=== PATIENT | female | born 1970 | race Hispanic/Latino ===

== ENCOUNTER 2018-09-14 17:33 | Emergency (ER) | payer MEDICAID ==
[~2018-09-14 17:33] MED LIST: ALPR1TAB2 PO; AMIT25TA9 PO; DIVA-78 PO; FIORC PO; HYDR-3421 PO; INSU10VI3 SQ; METF-445 PO; OXYC-165 PO; PROM25 PO
[2018-09-14] MEDS ORDERED: ONDANSETRON HCL 4 MG/2 ML VIAL ONE ×2 (18:12→19:54)
[2018-09-14] MEDS ORDERED: FAMOTIDINE/PF 20 MG/2 ML VIAL IV ONE (18:13)
[2018-09-14 18:15] LABS: BASOPHILS % (AUTO) 0.4 % (0.0-5.0); EOSINOPHILS % (AUTO) 1.6 % (0.0-8.0); HEMATOCRIT 41.3 % (36-48); MEAN CORPUSCULAR HEMOGLOBIN 28.8 pg (27.0-33.0); MEAN CORPUSCULAR VOLUME 84.6 fL (79-99); MONOCYTES % (AUTO) 6.9 % (3.0-13.0); NEUTROPHILS % (AUTO) 74.1 % (40.0-77.0); PLATELET COUNT (AUTO) 299 K/uL (130-400); RED BLOOD CELL COUNT(AUTO) 4.88 MIL/uL (4.00-5.50); RED CELL DISTRIBUTION WIDTH 12.9 % (11.0-15.5); WHITE BLOOD COUNT (AUTO) 12.7 K/uL (4.8-10.8)
[2018-09-14] MEDS ORDERED: SODIUM CHLORIDE 0.9% 1000ML 1,000 ML IV ONE (18:17)
[2018-09-14 18:27] LABS: CREATININE 0.8 mg/dL (0.5-1.5); POTASSIUM 3.8 mmol/L (3.5-5.1)
[2018-09-14 18:28] LABS: AMYLASE 38 U/L (25-115); LIPASE 157 U/L (114-286)
[2018-09-14 18:32] LABS: ALBUMIN 3.8 g/dL (3.5-5.0); BILIRUBIN,TOTAL 0.6 mg/dL (0.2-1.0); TOTAL PROTEIN, SERUM 7.8 g/dL (6.0-8.3)
[2018-09-14] MEDS ORDERED: LEVOFLOXACIN 500 MG TABLET ONE (19:53)
== END 2018-09-14 20:58 | disposition home or self-care (01) ==
LOC: EDH 17:33
DX: A09 Infectious gastroenteritis and colitis, unspecified (principal); R11.2 Nausea with vomiting, unspecified; E11.9 Type 2 diabetes mellitus without complications; J45.909 Unspecified asthma, uncomplicated; F41.9 Anxiety disorder, unspecified; Z79.4 Long term (current) use of insulin; Z88.5 Allergy status to narcotic agent; Z88.2 Allergy status to sulfonamides
CPT/HCPCS: 36415; 80053; 82150; 83690; 85025; 96361; 96374; 96375; 96376; 99283; J2405 ×2; J3490; J7030

== ENCOUNTER 2018-10-15 20:21 | Emergency (ER) | payer MEDICAID ==
[2018-10-15 20:49] LABS: BASOPHILS % (AUTO) 0.4 % (0.0-5.0); EOSINOPHILS % (AUTO) 2.2 % (0.0-8.0); HEMATOCRIT 38.9 % (36-48); LYMPHOCYTES % (AUTO) 23.4 % (21.0-51.0); MEAN CORPUSCULAR HEMOGLOBIN 29.1 pg (27.0-33.0); MEAN CORPUSCULAR HGB CONC 34.4 g/dL (32.0-36.0); MEAN CORPUSCULAR VOLUME 84.5 fL (79-99); MONOCYTES % (AUTO) 7.3 % (3.0-13.0); NEUTROPHILS % (AUTO) 66.7 % (40.0-77.0); PLATELET COUNT (AUTO) 277 K/uL (130-400); RED BLOOD CELL COUNT(AUTO) 4.61 MIL/uL (4.00-5.50); RED CELL DISTRIBUTION WIDTH 12.6 % (11.0-15.5); WHITE BLOOD COUNT (AUTO) 12.9 K/uL (4.8-10.8)
[2018-10-15 20:59] LABS: APPEARANCE,URINE SL CLOUDY (CLEAR); BILIRUBIN,URINE NEGATIVE (NEGATIVE); COLOR,URINE YELLOW (YELLOW); GLUCOSE, URINE (UA) >=1000 mg/dL (NEGATIVE); KETONES,URINE 5 mg/dL (NEGATIVE); LEUKOCYTE ESTERASE ,URINE TRACE (NEGATIVE); NITRATE,URINE POSITIVE (NEGATIVE); OCCULT BLOOD,URINE NEGATIVE (NEGATIVE); PH,URINE 6.5 (5.0-8.0); PROTEIN,URINE NEGATIVE (NEGATIVE); UROBILINOGEN,URINE 0.2 mg/dL (0.2-1.0)
[2018-10-15 21:02] LABS: INR 0.93 (0.85-1.15); PROTHROMBIN TIME 9.8 SEC (9.6-11.6)
[2018-10-15 21:06] LABS: AMPHET/METH SCREEN,URINE NEGATIVE (NEGATIVE); BARBITURATE SCREEN, URINE NEGATIVE (NEGATIVE); BENZODIAZEPINES SCREEN,URINE NEGATIVE (NEGATIVE); CANNABINOID SCREEN,URINE NEGATIVE (NEGATIVE); COCAINE SCREEN,URINE POSITIVE (NEGATIVE); OPIATE SCREEN,URINE NEGATIVE (NEGATIVE); PHENCYCLIDINE SCREEN,URINE NEGATIVE (NEGATIVE)
[2018-10-15 21:07] LABS: HCG,QUAL RESULT NEGATIVE (NEGATIVE)
[2018-10-15 21:10] LABS: CREATININE 0.8 mg/dL (0.5-1.5); POTASSIUM 4.2 mmol/L (3.5-5.1)
[2018-10-15 21:15] LABS: ALBUMIN 3.7 g/dL (3.5-5.0); BILIRUBIN,TOTAL 0.2 mg/dL (0.2-1.0)
[2018-10-15 21:31] LABS: BACTERIA,URINE Few /HPF (None Seen); MUCUS,URINE Few LPF (None Seen); RBC,URINE 0-1 /HPF (0-1); SQUAMOUS EPITHELIAL CELL,UR Moderate /HPF (0-2)
[2018-10-15] MEDS ORDERED: ACETAMINOPHEN EXTRA STRENGTH 500 MG TABLET ONE (22:07)
[2018-10-15] MEDS ORDERED: ONDANSETRON HCL 4 MG/2 ML VIAL ONE (22:26)
== END 2018-10-15 22:49 | disposition home or self-care (01) ==
LOC: EDH 20:21 → EEVIPCON 20:21 → EDH 22:49
DX: S09.90XA Unspecified injury of head, initial encounter (principal); F41.9 Anxiety disorder, unspecified; E11.9 Type 2 diabetes mellitus without complications; G43.909 Migraine, unspecified, not intractable, without status migrainosus; J45.909 Unspecified asthma, uncomplicated; F14.10 Cocaine abuse, uncomplicated; Z88.1 Allergy status to other antibiotic agents; Z88.6 Allergy status to analgesic agent; Z90.49 Acquired absence of other specified parts of digestive tract; Y04.2XXA Assault by strike against or bumped into by another person, initial encounter; Y93.89 Activity, other specified; Y92.89 Other specified places as the place of occurrence of the external cause; Y99.8 Other external cause status
CPT/HCPCS: 36415; 70450; 80053; 80305; 81001; 81025; 82550; 84484; 85025; 85610; 85730; 93005; 96374; 99285; J2405

== ENCOUNTER 2019-08-23 00:54 | Emergency (ER) | payer MEDICAID ==
[2019-08-23] MEDS ORDERED: DEXAMETHASONE SOD PHOSPHATE 10MG/ML 1ML VIAL ONE (01:39)
[2019-08-23] MEDS ORDERED: DiphenhydrAMINE HCL 50 MG/ML VIAL ONE (01:40)
[2019-08-23] MEDS ORDERED: PROCHLORPERAZINE EDISYLATE 10 MG/2 ML VIAL ONE (01:40)
[2019-08-23] MEDS ORDERED: KETOROLAC TROMETHAMINE 30MG/ML ONE (01:40)
[2019-08-23] MEDS ORDERED: SODIUM CHLORIDE 0.9% 1000ML 1,000 ML IV ONE (01:41)
[2019-08-23 02:14] LABS: BASOPHILS % (AUTO) 0.4 % (0.0-5.0); EOSINOPHILS % (AUTO) 3.7 % (0.0-8.0); HEMATOCRIT 40.1 % (36-48); LYMPHOCYTES % (AUTO) 23.9 % (21.0-51.0); MEAN CORPUSCULAR HEMOGLOBIN 28.3 pg (27.0-33.0); MEAN CORPUSCULAR HGB CONC 33.9 g/dL (32.0-36.0); MEAN CORPUSCULAR VOLUME 83.4 fL (79-99); MONOCYTES % (AUTO) 10.2 % (3.0-13.0); NEUTROPHILS % (AUTO) 61.1 % (40.0-77.0); PLATELET COUNT (AUTO) 308 K/uL (130-400); RED BLOOD CELL COUNT(AUTO) 4.81 MIL/uL (4.00-5.50); RED CELL DISTRIBUTION WIDTH 12.5 % (11.0-15.5); WHITE BLOOD COUNT (AUTO) 16.4 K/uL (4.8-10.8)
[2019-08-23 02:25] LABS: CREATININE 0.8 mg/dL (0.5-1.5); POTASSIUM 3.9 mmol/L (3.5-5.1)
== END 2019-08-23 04:03 | disposition home or self-care (01) ==
LOC: EDH 00:54
DX: G43.009 Migraine without aura, not intractable, without status migrainosus (principal); J01.90 Acute sinusitis, unspecified; R11.2 Nausea with vomiting, unspecified; J45.909 Unspecified asthma, uncomplicated; E11.9 Type 2 diabetes mellitus without complications; F41.9 Anxiety disorder, unspecified; F14.10 Cocaine abuse, uncomplicated; Z88.1 Allergy status to other antibiotic agents; Z88.6 Allergy status to analgesic agent; Z90.710 Acquired absence of both cervix and uterus; Z98.890 Other specified postprocedural states
CPT/HCPCS: 36415; 70450; 80048; 85025; 96361; 96372; 96374; 96375; 99285; J0780; J1100; J1200; J1885; J7030

== ENCOUNTER 2019-09-03 00:25 | Emergency (ER) | payer MEDICAID ==
[2019-09-03] MEDS ORDERED: ACETAMINOPHEN EXTRA STRENGTH 500 MG TABLET ONE (00:44)
[2019-09-03] MEDS ORDERED: ONDANSETRON ODT 4 MG TAB ONE (00:45)
[2019-09-03 01:03] LABS: RAPID GROUP A STREP NEGATIVE (NEGATIVE)
[2019-09-03] MEDS ORDERED: SODIUM CHLORIDE 0.9% 1000ML 1,000 ML IV ONE ×2 (01:42→02:35)
[2019-09-03] MEDS ORDERED: FAMOTIDINE/PF 20 MG/2 ML VIAL IV ONE (01:44)
[2019-09-03] MEDS ORDERED: HYOSCYAMINE SULFATE 0.125 MG TAB.SUBL SL ONE (01:44)
[2019-09-03 01:48] LABS: BASOPHILS % (AUTO) 0.2 % (0.0-5.0); EOSINOPHILS % (AUTO) 1.6 % (0.0-8.0); HEMATOCRIT 41.3 % (36-48); LYMPHOCYTES % (AUTO) 3.5 % (21.0-51.0); MEAN CORPUSCULAR HEMOGLOBIN 28.3 pg (27.0-33.0); MEAN CORPUSCULAR HGB CONC 34.1 g/dL (32.0-36.0); MEAN CORPUSCULAR VOLUME 82.9 fL (79-99); MONOCYTES % (AUTO) 5.3 % (3.0-13.0); NEUTROPHILS % (AUTO) 88.8 % (40.0-77.0); PLATELET COUNT (AUTO) 310 K/uL (130-400); RED BLOOD CELL COUNT(AUTO) 4.98 MIL/uL (4.00-5.50); RED CELL DISTRIBUTION WIDTH 12.5 % (11.0-15.5)
[2019-09-03 02:02] LABS: ALBUMIN 3.5 g/dL (3.5-5.0); BILIRUBIN,TOTAL 0.5 mg/dL (0.2-1.0); POTASSIUM 4.6 mmol/L (3.5-5.1); TOTAL PROTEIN, SERUM 7.6 g/dL (6.0-8.3)
[2019-09-03] MEDS ORDERED: INSULIN HUMULIN R 100 UNIT/ML 3ML ONE (02:35)
[2019-09-03] MEDS ORDERED: ONDANSETRON HCL 4 MG/2 ML VIAL ONE (04:21)
[2019-09-03] MEDS ORDERED: LEVOFLOXACIN 500 MG TABLET ONE (04:21)
[2019-09-03] MEDS ORDERED: SODIUM CHLORIDE 0.9% 500ML 500 ML IV ONE (04:21)
[2019-09-03] MEDS ORDERED: SUCRALFATE 1 GM TABLET ONE (05:23)
== END 2019-09-03 05:42 | disposition home or self-care (01) ==
LOC: EDH 00:25
DX: A09 Infectious gastroenteritis and colitis, unspecified (principal); E11.65 Type 2 diabetes mellitus with hyperglycemia; E86.0 Dehydration; F41.9 Anxiety disorder, unspecified; J45.909 Unspecified asthma, uncomplicated; G43.909 Migraine, unspecified, not intractable, without status migrainosus; Z90.49 Acquired absence of other specified parts of digestive tract; Z88.1 Allergy status to other antibiotic agents
CPT/HCPCS: 36415; 80053; 82948; 83690; 85025; 87804 ×2; 87880; 96361; 96374; 96375; 99284; J1815; J2405; J3490; J7030 ×2; J7040

== ENCOUNTER 2020-03-19 18:06 | Emergency (ER) | payer MEDICAID ==
[2020-03-19] MEDS ORDERED: SODIUM CHLORIDE 0.9% 1000ML 1,000 ML IV ONE (18:07)
[2020-03-19 18:37] LABS: BASOPHILS % (AUTO) 0.3 % (0.0-5.0); EOSINOPHILS % (AUTO) 0.4 % (0.0-8.0); HEMATOCRIT 43.1 % (36-48); LYMPHOCYTES % (AUTO) 17.1 % (21.0-51.0); MEAN CORPUSCULAR HEMOGLOBIN 27.7 pg (27.0-33.0); MEAN CORPUSCULAR HGB CONC 34.1 g/dL (32.0-36.0); MEAN CORPUSCULAR VOLUME 81.3 fL (79-99); MONOCYTES % (AUTO) 5.3 % (3.0-13.0); NEUTROPHILS % (AUTO) 76.3 % (40.0-77.0); PLATELET COUNT (AUTO) 392 K/uL (130-400); RED CELL DISTRIBUTION WIDTH 13.3 % (11.0-15.5); WHITE BLOOD COUNT (AUTO) 15.4 K/uL (4.8-10.8)
[2020-03-19 19:04] LABS: APPEARANCE,URINE Clear (CLEAR); BILIRUBIN,URINE Negative (NEGATIVE); COLOR,URINE Yellow (YELLOW); GLUCOSE, URINE (UA) >=1000 mg/dL (NEGATIVE); KETONES,URINE Negative (NEGATIVE); LEUKOCYTE ESTERASE ,URINE Negative (NEGATIVE); NITRATE,URINE Negative (NEGATIVE); OCCULT BLOOD,URINE Negative (NEGATIVE); PROTEIN,URINE Negative (NEGATIVE)
[2020-03-19] MEDS ORDERED: DiphenhydrAMINE HCL 50 MG/ML VIAL ONE (19:20)
[2020-03-19] MEDS ORDERED: METOCLOPRAMIDE 10 MG/2 ML VIAL ONE (19:20)
[2020-03-19] MEDS ORDERED: KETOROLAC TROMETHAMINE 30MG/ML ONE (19:21)
[2020-03-19 19:26] LABS: CREATININE 0.8 mg/dL (0.5-1.5); POTASSIUM 3.7 mmol/L (3.5-5.1)
[2020-03-19 19:33] LABS: BACTERIA,URINE Few /HPF (None Seen); RBC,URINE None Seen /HPF (0-1); SQUAMOUS EPITHELIAL CELL,UR 0-2 /HPF (0-2)
[2020-03-19 19:42] LABS: AMPHET/METH SCREEN,URINE NEGATIVE (NEGATIVE); BARBITURATE SCREEN, URINE NEGATIVE (NEGATIVE); BENZODIAZEPINES SCREEN,URINE NEGATIVE (NEGATIVE); CANNABINOID SCREEN,URINE NEGATIVE (NEGATIVE); COCAINE SCREEN,URINE POSITIVE (NEGATIVE); OPIATE SCREEN,URINE NEGATIVE (NEGATIVE); PHENCYCLIDINE SCREEN,URINE NEGATIVE (NEGATIVE)
== END 2020-03-19 21:09 | disposition home or self-care (01) ==
LOC: EDH 18:06
DX: G43.109 Migraine with aura, not intractable, without status migrainosus (principal); E11.65 Type 2 diabetes mellitus with hyperglycemia; I10 Essential (primary) hypertension; F14.10 Cocaine abuse, uncomplicated; J45.909 Unspecified asthma, uncomplicated; F41.9 Anxiety disorder, unspecified; Z90.49 Acquired absence of other specified parts of digestive tract; Z88.6 Allergy status to analgesic agent; Z88.1 Allergy status to other antibiotic agents
CPT/HCPCS: 36415; 80048; 80305; 81001; 85025; 96361; 96374; 96375; 99284; J1200; J1885; J2765; J7030

== ENCOUNTER 2020-04-05 10:50 | Emergency (ER) | payer MEDICAID ==
[2020-04-05 11:19] LABS: BASOPHILS % (AUTO) 0.4 % (0.0-5.0); EOSINOPHILS % (AUTO) 4.5 % (0.0-8.0); HEMATOCRIT 41.5 % (36-48); LYMPHOCYTES % (AUTO) 23.4 % (21.0-51.0); MEAN CORPUSCULAR HEMOGLOBIN 28.5 pg (27.0-33.0); MEAN CORPUSCULAR HGB CONC 34.5 g/dL (32.0-36.0); MEAN CORPUSCULAR VOLUME 82.8 fL (79-99); NEUTROPHILS % (AUTO) 64.5 % (40.0-77.0); PLATELET COUNT (AUTO) 354 K/uL (130-400); RED BLOOD CELL COUNT(AUTO) 5.01 MIL/uL (4.00-5.50); RED CELL DISTRIBUTION WIDTH 13.1 % (11.0-15.5); WHITE BLOOD COUNT (AUTO) 15.6 K/uL (4.8-10.8)
[2020-04-05 11:20] LABS: APPEARANCE,URINE Clear (CLEAR); BILIRUBIN,URINE Negative (NEGATIVE); COLOR,URINE Yellow (YELLOW); GLUCOSE, URINE (UA) >=1000 mg/dL (NEGATIVE); KETONES,URINE Negative (NEGATIVE); LEUKOCYTE ESTERASE ,URINE Moderate (NEGATIVE); NITRATE,URINE Negative (NEGATIVE); OCCULT BLOOD,URINE Negative (NEGATIVE); PH,URINE 5.5 (5.0-8.0); PROTEIN,URINE Negative (NEGATIVE); UROBILINOGEN,URINE 0.2 mg/dL (0.2-1.0)
[2020-04-05 11:27] LABS: AMPHET/METH SCREEN,URINE NEGATIVE (NEGATIVE); BARBITURATE SCREEN, URINE NEGATIVE (NEGATIVE); BENZODIAZEPINES SCREEN,URINE NEGATIVE (NEGATIVE); CANNABINOID SCREEN,URINE NEGATIVE (NEGATIVE); COCAINE SCREEN,URINE POSITIVE (NEGATIVE); OPIATE SCREEN,URINE NEGATIVE (NEGATIVE); PHENCYCLIDINE SCREEN,URINE NEGATIVE (NEGATIVE)
[2020-04-05 11:29] LABS: CREATININE 0.7 mg/dL (0.5-1.5); POTASSIUM 4.4 mmol/L (3.5-5.1)
[2020-04-05 11:33] LABS: BILIRUBIN,TOTAL 0.2 mg/dL (0.2-1.0); TOTAL PROTEIN, SERUM 7.7 g/dL (6.0-8.3)
[2020-04-05] MEDS ORDERED: SODIUM CHLORIDE 0.9% 1000ML 1,000 ML IV ONE (11:37)
[2020-04-05] MEDS ORDERED: ONDANSETRON HCL 4 MG/2 ML VIAL ONE (11:37)
[2020-04-05 11:39] LABS: BACTERIA,URINE Rare /HPF (None Seen); RBC,URINE None Seen /HPF (0-1)
[2020-04-05] MEDS ORDERED: DiphenhydrAMINE HCL 50 MG/ML VIAL ONE (12:06)
[2020-04-05] MEDS ORDERED: KETOROLAC TROMETHAMINE 30MG/ML ONE (12:06)
[2020-04-05] MEDS ORDERED: PROCHLORPERAZINE EDISYLATE 10 MG/2 ML VIAL ONE (12:06)
[2020-04-05] MEDS ORDERED: SODIUM CHLORIDE 0.9% 50 ML IV ONE (12:07)
[2020-04-05] MEDS ORDERED: LEVOFLOXACIN 500 MG/D5W 100 ML 100 ML ONE (12:26)
== END 2020-04-05 14:01 | disposition home or self-care (01) ==
LOC: EDH 10:50
DX: N30.00 Acute cystitis without hematuria (principal); G43.909 Migraine, unspecified, not intractable, without status migrainosus; F14.10 Cocaine abuse, uncomplicated; J45.909 Unspecified asthma, uncomplicated; F41.9 Anxiety disorder, unspecified; Z90.49 Acquired absence of other specified parts of digestive tract; Z88.6 Allergy status to analgesic agent; Z88.1 Allergy status to other antibiotic agents
CPT/HCPCS: 36415; 70450; 80053; 80305; 81001; 85025; 87088; 96361; 96365; 96375; 99284; J0780; J1200; J1885; J1956; J2405; J7030

== ENCOUNTER 2020-05-19 20:11 | Emergency (ER) | payer MEDICAID ==
[2020-05-19] MEDS ORDERED: KETOROLAC TROMETHAMINE 30MG/ML ONE (20:41)
[2020-05-19] MEDS ORDERED: ONDANSETRON HCL 4 MG/2 ML VIAL ONE ×2 (20:41→23:42)
[2020-05-19] MEDS ORDERED: SODIUM CHLORIDE 0.9% 1000ML 1,000 ML IV ONE ×2 (20:44→23:46)
[2020-05-19 20:45] LABS: BASOPHILS % (AUTO) 0.4 % (0.0-5.0); EOSINOPHILS % (AUTO) 2.8 % (0.0-8.0); HEMATOCRIT 43.3 % (36-48); LYMPHOCYTES % (AUTO) 29.2 % (21.0-51.0); MEAN CORPUSCULAR HEMOGLOBIN 28.4 pg (27.0-33.0); MEAN CORPUSCULAR HGB CONC 33.9 g/dL (32.0-36.0); MEAN CORPUSCULAR VOLUME 83.6 fL (79-99); PLATELET COUNT (AUTO) 362 K/uL (130-400); RED BLOOD CELL COUNT(AUTO) 5.18 MIL/uL (4.00-5.50); RED CELL DISTRIBUTION WIDTH 12.7 % (11.0-15.5); WHITE BLOOD COUNT (AUTO) 15.7 K/uL (4.8-10.8)
[2020-05-19 20:47] LABS: APPEARANCE,URINE Clear (CLEAR); BILIRUBIN,URINE Negative (NEGATIVE); COLOR,URINE Yellow (YELLOW); GLUCOSE, URINE (UA) >=1000 mg/dL (NEGATIVE); KETONES,URINE Negative (NEGATIVE); LEUKOCYTE ESTERASE ,URINE Negative (NEGATIVE); NITRATE,URINE Negative (NEGATIVE); OCCULT BLOOD,URINE Negative (NEGATIVE); PROTEIN,URINE Negative (NEGATIVE); UROBILINOGEN,URINE 0.2 mg/dL (0.2-1.0)
[2020-05-19 21:06] LABS: CREATININE 1.3 mg/dL (0.5-1.5); POTASSIUM 4.6 mmol/L (3.5-5.1)
[2020-05-19 21:10] LABS: BILIRUBIN,TOTAL 0.2 mg/dL (0.2-1.0); TOTAL PROTEIN, SERUM 8.1 g/dL (6.0-8.3)
[2020-05-19 21:17] LABS: BACTERIA,URINE Rare /HPF (None Seen); RBC,URINE 0-1 /HPF (0-1); SQUAMOUS EPITHELIAL CELL,UR Rare /HPF (0-2); WBC,URINE 0-1 /HPF (0-1)
[2020-05-19 21:19] LABS: AMPHET/METH SCREEN,URINE NEGATIVE (NEGATIVE); BARBITURATE SCREEN, URINE NEGATIVE (NEGATIVE); BENZODIAZEPINES SCREEN,URINE NEGATIVE (NEGATIVE); CANNABINOID SCREEN,URINE NEGATIVE (NEGATIVE); COCAINE SCREEN,URINE NEGATIVE (NEGATIVE); OPIATE SCREEN,URINE NEGATIVE (NEGATIVE); PHENCYCLIDINE SCREEN,URINE NEGATIVE (NEGATIVE)
[2020-05-19] MEDS ORDERED: INSULIN HUMULIN R 100 UNIT/ML 3ML ONE (21:22)
[2020-05-19] MEDS ORDERED: IOHEXOL-350 75 ML VIAL IV ONE (21:28)
[2020-05-19] MEDS ORDERED: MORPHINE SULFATE 2 MG/ML 1ML SYG ONE (23:42)
== END 2020-05-19 22:34 | disposition home or self-care (01) ==
LOC: EDH 20:11
DX: E11.65 Type 2 diabetes mellitus with hyperglycemia (principal); R10.9 Unspecified abdominal pain; M54.5 Low back pain; J45.909 Unspecified asthma, uncomplicated; G43.909 Migraine, unspecified, not intractable, without status migrainosus; F41.9 Anxiety disorder, unspecified; Z88.1 Allergy status to other antibiotic agents; Z88.6 Allergy status to analgesic agent; Z98.890 Other specified postprocedural states; Z90.49 Acquired absence of other specified parts of digestive tract
CPT/HCPCS: 36415; 74177; 80053; 80305; 81001; 81025; 82010; 82550; 82948; 85025; 96361; 96374; 96375; 99285; J1815; J1885; J2405; J7030; Q9967

== ENCOUNTER 2020-06-02 12:49 | Emergency (ER) | payer MEDICAID ==
[2020-06-02 13:27] LABS: BASOPHILS % (AUTO) 0.4 % (0.0-5.0); EOSINOPHILS % (AUTO) 1.3 % (0.0-8.0); HEMATOCRIT 45.7 % (36-48); LYMPHOCYTES % (AUTO) 21.1 % (21.0-51.0); MEAN CORPUSCULAR HEMOGLOBIN 28.4 pg (27.0-33.0); MEAN CORPUSCULAR HGB CONC 34.6 g/dL (32.0-36.0); MEAN CORPUSCULAR VOLUME 82.2 fL (79-99); MONOCYTES % (AUTO) 8.5 % (3.0-13.0); NEUTROPHILS % (AUTO) 67.8 % (40.0-77.0); PLATELET COUNT (AUTO) 457 K/uL (130-400); RED BLOOD CELL COUNT(AUTO) 5.56 MIL/uL (4.00-5.50); RED CELL DISTRIBUTION WIDTH 12.2 % (11.0-15.5); WHITE BLOOD COUNT (AUTO) 22.7 K/uL (4.8-10.8)
[2020-06-02 13:40] LABS: CREATININE 0.7 mg/dL (0.5-1.5); POTASSIUM 3.6 mmol/L (3.5-5.1)
[2020-06-02 13:40] LABS: APPEARANCE,URINE Cloudy (CLEAR); BILIRUBIN,URINE Small (NEGATIVE); COLOR,URINE Dark Yellow (YELLOW); GLUCOSE, URINE (UA) TRACE mg/dL (NEGATIVE); KETONES,URINE Trace mg/dL (NEGATIVE); LEUKOCYTE ESTERASE ,URINE Small (NEGATIVE); NITRATE,URINE Negative (NEGATIVE); OCCULT BLOOD,URINE Negative (NEGATIVE); PROTEIN,URINE Trace mg/dL (NEGATIVE)
[2020-06-02 13:43] LABS: BILIRUBIN,TOTAL 0.5 mg/dL (0.2-1.0)
[2020-06-02 13:51] LABS: BACTERIA,URINE Rare /HPF (None Seen); RBC,URINE 0-1 /HPF (0-1); SQUAMOUS EPITHELIAL CELL,UR Many /HPF (0-2)
[2020-06-02 14:12] LABS: AMPHET/METH SCREEN,URINE NEGATIVE (NEGATIVE); BARBITURATE SCREEN, URINE NEGATIVE (NEGATIVE); BENZODIAZEPINES SCREEN,URINE NEGATIVE (NEGATIVE); CANNABINOID SCREEN,URINE NEGATIVE (NEGATIVE); COCAINE SCREEN,URINE NEGATIVE (NEGATIVE); OPIATE SCREEN,URINE NEGATIVE (NEGATIVE); PHENCYCLIDINE SCREEN,URINE NEGATIVE (NEGATIVE)
[2020-06-02] MEDS ORDERED: SODIUM CHLORIDE 0.9% 1000ML 1,000 ML IV ONE (14:33)
[2020-06-02] MEDS ORDERED: IOHEXOL-350 75 ML VIAL IV ONE (14:43)
[2020-06-02] MEDS ORDERED: ONDANSETRON HCL 4 MG/2 ML VIAL ONE (16:18)
[2020-06-02] MEDS ORDERED: LEVOFLOXACIN 750 MG/D5W 150 ML 150 ML ONE (16:18)
[2020-06-02] MEDS ORDERED: KETOROLAC TROMETHAMINE 30MG/ML ONE (16:45)
== END 2020-06-02 18:09 | disposition home or self-care (01) ==
LOC: EDH 12:49
DX: N39.0 Urinary tract infection, site not specified (principal); R11.2 Nausea with vomiting, unspecified; D72.829 Elevated white blood cell count, unspecified; E11.9 Type 2 diabetes mellitus without complications; J45.909 Unspecified asthma, uncomplicated; G43.909 Migraine, unspecified, not intractable, without status migrainosus; F14.10 Cocaine abuse, uncomplicated; F41.9 Anxiety disorder, unspecified; Z88.1 Allergy status to other antibiotic agents; Z88.6 Allergy status to analgesic agent; Z88.8 Allergy status to other drugs, medicaments and biological substances; Z90.49 Acquired absence of other specified parts of digestive tract
CPT/HCPCS: 36415; 74177; 80053; 80305; 81001; 82948; 85025; 87088; 96361; 96365; 96366; 96375; 99285; J1885; J1956; J2405; J7030; Q9967

== ENCOUNTER 2021-03-03 21:32 | Emergency (ER) | payer MEDICAID ==
[~2021-03-03] VITALS: Ht 157.5 cm; Wt 68.0 kg
[2021-03-03] MEDS ORDERED: RACEPINEPHRINE HCL 2.25% 0.5 ML NEB SOLN NEB SCH (22:00)
[2021-03-03] MEDS ORDERED: IPRATROPIUM/ALBUTEROL SULFATE 3 ML SOLUTION IH ONE (22:00)
[2021-03-03] MEDS ORDERED: GUAIFENESIN SUGAR-FREE 100 MG/5 ML UDCUP PO ONE (22:00)
[2021-03-03] MEDS ORDERED: BENZONATATE 100 MG CAPSULE PO SCH (22:00)
[2021-03-03] MEDS ORDERED: CHLO25 PO (22:31)
[2021-03-03] MEDS ORDERED: ALBU1.252 IH (22:31)
[2021-03-03] MEDS ORDERED: BENZ-39 PO (22:31)
[2021-03-03 22:57] VITALS: BP 132/79
== END 2021-03-03 23:00 | disposition home or self-care (01) ==
LOC: EDH 21:32
DX: J45.909 Unspecified asthma, uncomplicated (principal); E11.9 Type 2 diabetes mellitus without complications; F32.9 Major depressive disorder, single episode, unspecified; F41.9 Anxiety disorder, unspecified; Z79.4 Long term (current) use of insulin; Z79.82 Long term (current) use of aspirin; Z88.1 Allergy status to other antibiotic agents; Z88.5 Allergy status to narcotic agent; Z88.8 Allergy status to other drugs, medicaments and biological substances; Z79.899 Other long term (current) drug therapy
CPT/HCPCS: 71045; 94640; Q0161

== ENCOUNTER 2021-07-23 11:51 | Emergency (ER) | payer MEDICAID ==
[~2021-07-23] VITALS: Ht 157.5 cm; Wt 69.9 kg
[~2021-07-23 11:51] MED LIST changes: +ALBU1.252 IH; +BENZ-39 PO; +CHLO25 PO
[2021-07-23 12:53] LABS: BASOPHILS % (AUTO) 0.6 % (0.0-5.0); EOSINOPHILS % (AUTO) 4.5 % (0.0-8.0); HEMATOCRIT 41.3 % (36-48); LYMPHOCYTES % (AUTO) 22.8 % (21.0-51.0); MEAN CORPUSCULAR HEMOGLOBIN 27.3 pg (27.0-33.0); MEAN CORPUSCULAR HGB CONC 32.7 g/dL (32.0-36.0); MEAN CORPUSCULAR VOLUME 83.6 fL (79-99); MONOCYTES % (AUTO) 7.5 % (3.0-13.0); NEUTROPHILS % (AUTO) 63.9 % (40.0-77.0); PLATELET COUNT (AUTO) 333 K/uL (130-400); RED BLOOD CELL COUNT(AUTO) 4.94 MIL/uL (4.00-5.50); RED CELL DISTRIBUTION WIDTH 13.8 % (11.0-15.5); WHITE BLOOD COUNT (AUTO) 14.3 K/uL (4.8-10.8)
[2021-07-23 13:08] LABS: CARBON DIOXIDE 30 mmol/L (21-32); CHLORIDE 98 mmol/L (101-111); CREATININE 0.9 mg/dL (0.5-1.5); GLOMERULAR FILTR. RATE CALC 70 mL/min (>60); GLUCOSE,RANDOM 375 mg/dL (70-105); POTASSIUM 4.1 mmol/L (3.5-5.1); SODIUM SERUM 136 mmol/L (136-145); UREA NITROGEN, BLOOD 15 mg/dL (7-18)
[2021-07-23 13:21] LABS: ALANINE AMINOTRANSFERASE 29 U/L (12-78); ALBUMIN 3.8 g/dL (3.5-5.0); ALCOHOL, BLOOD < 3 mg/dL (0-10); ASPARTATE AMINOTRANSFERASE 29 U/L (10-37); BILIRUBIN,TOTAL 0.2 mg/dL (0.2-1.0); TOTAL PROTEIN, SERUM 7.5 g/dL (6.0-8.3)
[2021-07-23] MEDS ORDERED: 0.9%NACL 1000ML 1,000 ML IV ONE (13:30)
[2021-07-23] MEDS ORDERED: INSULIN HUMULIN R 100 UNIT/ML 3ML SQ ONE (13:30)
[2021-07-23 13:39] LABS: SALICYLATE < 2.8 mg/dL (2.8-20.0)
[2021-07-23 13:40] LABS: ACETAMINOPHEN < 1 mcg/mL (10-30)
[2021-07-23 13:41] LABS: CREATINE KINASE, TOTAL 500 U/L (21-232)
[2021-07-23 14:33] LABS: BILIRUBIN,URINE Negative (NEGATIVE); COLOR,URINE Yellow (YELLOW); GLUCOSE, URINE (UA) 500 mg/dL (NEGATIVE); KETONES,URINE Negative (NEGATIVE); LEUKOCYTE ESTERASE ,URINE Trace (NEGATIVE); NITRATE,URINE Negative (NEGATIVE); OCCULT BLOOD,URINE Moderate (NEGATIVE); PROTEIN,URINE Negative (NEGATIVE); UROBILINOGEN,URINE 0.2 mg/dL (0.2-1.0)
[2021-07-23 14:38] LABS: HCG,QUAL RESULT NEGATIVE (NEGATIVE)
[2021-07-23 14:39] LABS: APPEARANCE,URINE CLEAR (CLEAR)
[2021-07-23 14:41] LABS: AMPHET/METH SCREEN,URINE NEGATIVE (NEGATIVE); BARBITURATE SCREEN, URINE NEGATIVE (NEGATIVE); BENZODIAZEPINES SCREEN,URINE POSITIVE (NEGATIVE); CANNABINOID SCREEN,URINE NEGATIVE (NEGATIVE); COCAINE SCREEN,URINE POSITIVE (NEGATIVE); OPIATE SCREEN,URINE NEGATIVE (NEGATIVE); PHENCYCLIDINE SCREEN,URINE NEGATIVE (NEGATIVE)
[2021-07-23 15:13] LABS: BACTERIA,URINE Rare /HPF (None Seen); RBC,URINE 0-1 /HPF (0-1); SQUAMOUS EPITHELIAL CELL,UR Few /HPF (0-2)
[2021-07-23] MEDS ORDERED: CEPHALEXIN 500 MG CAPSULE PO ONE (15:30)
[2021-07-23 18:43] VITALS: BP 136/83
== END 2021-07-23 18:55 | disposition home or self-care (01) ==
LOC: EDH 11:51
DX: R45.851 Suicidal ideations (principal); F32.9 Major depressive disorder, single episode, unspecified; F13.10 Sedative, hypnotic or anxiolytic abuse, uncomplicated; F14.10 Cocaine abuse, uncomplicated; F41.9 Anxiety disorder, unspecified; J45.909 Unspecified asthma, uncomplicated; E11.9 Type 2 diabetes mellitus without complications; Z88.5 Allergy status to narcotic agent; Z88.1 Allergy status to other antibiotic agents; Z88.8 Allergy status to other drugs, medicaments and biological substances; Z79.4 Long term (current) use of insulin; Z79.899 Other long term (current) drug therapy
CPT/HCPCS: 36415; 80053; 80305; 81001; 81025; 82550; 82948; 85025; 87635; 96360; 96361; 96372; 99285; C9803; G0481; J1815; J7030

== ENCOUNTER 2021-08-12 10:22 | Emergency (ER) | payer MEDICAID ==
[~2021-08-12] VITALS: Ht 157.5 cm; Wt 63.0 kg
[2021-08-12 10:49] VITALS: BP 135/74
[2021-08-12] MEDS ORDERED: ONDANSETRON ODT 4MG TAB SL SCH (11:30)
[2021-08-12] MEDS ORDERED: ONDA4TAB10 PO (12:06)
[2021-08-12] MEDS ORDERED: DICL50TA9 PO (12:06)
== END 2021-08-12 12:33 | disposition home or self-care (01) ==
LOC: EDH 10:22
DX: S06.0X0A Concussion without loss of consciousness, initial encounter (principal); F41.9 Anxiety disorder, unspecified; F32.A Depression, unspecified; E11.9 Type 2 diabetes mellitus without complications; Z88.1 Allergy status to other antibiotic agents; Z88.5 Allergy status to narcotic agent; Z88.8 Allergy status to other drugs, medicaments and biological substances; Z79.82 Long term (current) use of aspirin; Z90.49 Acquired absence of other specified parts of digestive tract; Z79.4 Long term (current) use of insulin; W18.2XXA Fall in (into) shower or empty bathtub, initial encounter; Y93.E1 Activity, personal bathing and showering; Y92.89 Other specified places as the place of occurrence of the external cause; Y99.8 Other external cause status
CPT/HCPCS: 70450; 82948

== ENCOUNTER 2022-07-21 14:31 | Emergency (ER) | payer MEDICAID ==
[~2022-07-21] VITALS: Ht 157.5 cm; Wt 70.8 kg
[~2022-07-21 14:31] MED LIST changes: +DICL50TA9 PO; +ONDA4TAB10 PO
[2022-07-21 14:33] VITALS: BP 115/81
[2022-07-21] MEDS ORDERED: FLUO40CA7 PO (14:59)
[2022-07-21] MEDS ORDERED: LORA10TA7 PO (14:59)
[2022-07-21] MEDS ORDERED: ALBUHFA IH (14:59)
[2022-07-21] MEDS ORDERED: ZOLP12.555 PO (14:59)
[2022-07-21] MEDS ORDERED: NAPR500T6 PO (14:59)
[2022-07-21] MEDS ORDERED: GABA300S PO (14:59)
[2022-07-21 15:03] LABS: APPEARANCE,URINE CLOUDY (CLEAR); BILIRUBIN,URINE NEGATIVE (NEGATIVE); COLOR,URINE LIGHT-YELLOW (YELLOW); GLUCOSE, URINE (UA) NEGATIVE (NEGATIVE); KETONES,URINE NEGATIVE (NEGATIVE); LEUKOCYTE ESTERASE ,URINE 500 Leu/uL (NEGATIVE); NITRATE,URINE NEGATIVE (NEGATIVE); OCCULT BLOOD,URINE NEGATIVE (NEGATIVE); PROTEIN,URINE NEGATIVE (NEGATIVE); UROBILINOGEN,URINE 0.2 mg/dL (0.2-1.0)
[2022-07-21 15:07] LABS: BASOPHILS % (AUTO) 0.4 % (0.0-5.0); EOSINOPHILS % (AUTO) 2.7 % (0.0-8.0); HEMATOCRIT 42.9 % (36-48); LYMPHOCYTES % (AUTO) 20.1 % (21.0-51.0); MEAN CORPUSCULAR HEMOGLOBIN 27.6 pg (27.0-33.0); MEAN CORPUSCULAR HGB CONC 32.9 g/dL (32.0-36.0); MONOCYTES % (AUTO) 7.7 % (3.0-13.0); NEUTROPHILS % (AUTO) 68.5 % (40.0-77.0); PLATELET COUNT (AUTO) 316 K/uL (130-400); RED BLOOD CELL COUNT(AUTO) 5.11 MIL/uL (4.00-5.50); RED CELL DISTRIBUTION WIDTH 13.1 % (11.0-15.5); WHITE BLOOD COUNT (AUTO) 16.1 K/uL (4.8-10.8)
[2022-07-21 15:08] LABS: AMPHET/METH SCREEN,URINE NEGATIVE (NEGATIVE); BARBITURATE SCREEN, URINE NEGATIVE (NEGATIVE); BENZODIAZEPINES SCREEN,URINE POSITIVE (NEGATIVE); CANNABINOID SCREEN,URINE NEGATIVE (NEGATIVE); COCAINE SCREEN,URINE POSITIVE (NEGATIVE); OPIATE SCREEN,URINE NEGATIVE (NEGATIVE); PHENCYCLIDINE SCREEN,URINE NEGATIVE (NEGATIVE)
[2022-07-21 15:17] LABS: CARBON DIOXIDE 28 mmol/L (21-32); CHLORIDE 99 mmol/L (101-111); CREATININE 0.9 mg/dL (0.5-1.5); GLOMERULAR FILTR. RATE CALC 70 mL/min (>60); GLUCOSE,RANDOM 191 mg/dL (70-105); POTASSIUM 4.2 mmol/L (3.5-5.1); SODIUM SERUM 135 mmol/L (136-145); UREA NITROGEN, BLOOD 18 mg/dL (7-18)
[2022-07-21 15:26] LABS: ALANINE AMINOTRANSFERASE 28 U/L (12-78); ALCOHOL, BLOOD < 3 mg/dL (0-10); ASPARTATE AMINOTRANSFERASE 23 U/L (10-37); TOTAL PROTEIN, SERUM 8.2 g/dL (6.0-8.3)
[2022-07-21 15:30] LABS: ACETAMINOPHEN < 1 mcg/mL (10-30); SALICYLATE < 2.8 mg/dL (2.8-20.0)
[2022-07-21 15:44] LABS: BACTERIA,URINE RARE /HPF (None Seen); MUCUS,URINE RARE LPF (None Seen); SQUAMOUS EPITHELIAL CELL,UR FEW /HPF (0-2); WBC,URINE 26-50 /HPF (0-1)
[2022-07-21] MEDS ORDERED: ACETAMINOPHEN 500 MG TABLET PO ONE (16:30)
[2022-07-21] MEDS ORDERED: KETOROLAC 60 MG VIAL (30MG/ML) IM ONE (17:00)
== END 2022-07-21 20:08 | disposition home or self-care (01) ==
LOC: EDH 14:31
DX: R45.851 Suicidal ideations (principal); F32.A Depression, unspecified; F41.9 Anxiety disorder, unspecified; E11.9 Type 2 diabetes mellitus without complications; Z88.1 Allergy status to other antibiotic agents; Z88.5 Allergy status to narcotic agent; Z88.8 Allergy status to other drugs, medicaments and biological substances; Z79.899 Other long term (current) drug therapy; Z90.49 Acquired absence of other specified parts of digestive tract; Z90.89 Acquired absence of other organs; Z98.890 Other specified postprocedural states
CPT/HCPCS: 99284; 84484; 80053; 80305; 85025; 87088; 36415; 96372; 93005; 81001; G0481; J1885

== ENCOUNTER 2023-03-20 12:28 | Emergency (ER) | payer MEDICAID ==
[~2023-03-20] VITALS: Ht 165.1 cm; Wt 81.6 kg
[~2023-03-20 12:28] MED LIST changes: +ALBUHFA IH; +FLUO40CA7 PO; +GABA300S3 PO; +LORA10TA7 PO; +NAPR500T6 PO; +ZOLP12.555 PO
[2023-03-20 12:30] VITALS: BP 106/72; PULSE 73; RESP 18
[2023-03-20 14:27] LABS: BASOPHILS # (AUTO) 0.03 K/uL (0.00-0.20); BASOPHILS % (AUTO) 0.2 % (0.0-5.0); EOSINOPHILS # (AUTO) 0.53 K/uL (0.00-0.70); EOSINOPHILS % (AUTO) 4.3 % (0.0-8.0); HEMATOCRIT 39.6 % (36-48); IMMATURE GRANULOCYTE ABSOLUTE 0.04 K/uL (0-1); LYMPHOCYTES # (AUTO) 2.6 K/uL (1.0-4.8); LYMPHOCYTES % (AUTO) 21.4 % (21.0-51.0); MEAN CORPUSCULAR HEMOGLOBIN 27.4 pg (27.0-33.0); MEAN CORPUSCULAR HGB CONC 33.3 g/dL (32.0-36.0); MEAN CORPUSCULAR VOLUME 82.2 fL (79-99); MONOCYTES # (AUTO) 1.1 K/uL (0.1-1.0); MONOCYTES % (AUTO) 8.9 % (3.0-13.0); NEUTROPHILS % (AUTO) 64.9 % (40.0-77.0); PLATELET COUNT (AUTO) 321 K/uL (130-400); RED BLOOD CELL COUNT(AUTO) 4.82 MIL/uL (4.00-5.50); RED CELL DISTRIBUTION WIDTH 13.3 % (11.0-15.5); WHITE BLOOD COUNT (AUTO) 12.3 K/uL (4.8-10.8)
[2023-03-20 14:45] LABS: ALBUMIN 3.7 g/dL (3.5-5.0); BILIRUBIN,TOTAL 0.4 mg/dL (0.2-1.0); CREATININE 1.1 mg/dL (0.5-1.5); POTASSIUM 4.3 mmol/L (3.5-5.1); TOTAL PROTEIN, SERUM 7.5 g/dL (6.0-8.3)
[2023-03-20] MEDS ORDERED: IBUP-2070 PO (15:44)
== END 2023-03-20 15:59 | disposition home or self-care (01) ==
LOC: EDH 12:28
DX: S99.822A Other specified injuries of left foot, initial encounter (principal); F41.9 Anxiety disorder, unspecified; F32.A Depression, unspecified; E11.9 Type 2 diabetes mellitus without complications; Z79.84 Long term (current) use of oral hypoglycemic drugs; Z79.899 Other long term (current) drug therapy; Z90.49 Acquired absence of other specified parts of digestive tract; Z90.89 Acquired absence of other organs; Z98.890 Other specified postprocedural states; Z88.5 Allergy status to narcotic agent; Z88.0 Allergy status to penicillin; W18.39XA Other fall on same level, initial encounter; Y93.89 Activity, other specified; Y92.89 Other specified places as the place of occurrence of the external cause; Y99.8 Other external cause status
CPT/HCPCS: 36415; 70450; 73630; 80053; 84484; 85025; 93005; 99281

== ENCOUNTER 2023-03-21 10:09 | Emergency (ER) | payer MEDICAID ==
[~2023-03-21] VITALS: Ht 157.5 cm; Wt 90.7 kg
[~2023-03-21 10:09] MED LIST changes: +IBUP-2070 PO
[2023-03-21 12:06] LABS: BASOPHILS # (AUTO) 0.04 K/uL (0.00-0.20); BASOPHILS % (AUTO) 0.3 % (0.0-5.0); EOSINOPHILS # (AUTO) 0.23 K/uL (0.00-0.70); EOSINOPHILS % (AUTO) 1.6 % (0.0-8.0); HEMATOCRIT 39.6 % (36-48); IMMATURE GRANULOCYTE ABSOLUTE 0.07 K/uL (0-1); LYMPHOCYTES # (AUTO) 2.2 K/uL (1.0-4.8); LYMPHOCYTES % (AUTO) 14.8 % (21.0-51.0); MEAN CORPUSCULAR HEMOGLOBIN 27.1 pg (27.0-33.0); MEAN CORPUSCULAR HGB CONC 33.3 g/dL (32.0-36.0); MEAN CORPUSCULAR VOLUME 81.3 fL (79-99); MONOCYTES # (AUTO) 1.3 K/uL (0.1-1.0); MONOCYTES % (AUTO) 8.9 % (3.0-13.0); NEUTROPHILS # (AUTO) 10.9 K/uL (1.8-7.7); NEUTROPHILS % (AUTO) 73.9 % (40.0-77.0); PLATELET COUNT (AUTO) 315 K/uL (130-400); RED BLOOD CELL COUNT(AUTO) 4.87 MIL/uL (4.00-5.50); RED CELL DISTRIBUTION WIDTH 13.3 % (11.0-15.5); WHITE BLOOD COUNT (AUTO) 14.8 K/uL (4.8-10.8)
[2023-03-21 12:28] LABS: POTASSIUM 3.7 mmol/L (3.5-5.1)
[2023-03-21 12:30] LABS: ALCOHOL, BLOOD < 3 mg/dL (0-10)
[2023-03-21 12:32] LABS: ALBUMIN 3.7 g/dL (3.5-5.0); BILIRUBIN,TOTAL 0.2 mg/dL (0.2-1.0)
[2023-03-21 12:33] LABS: ACETAMINOPHEN < 1 mcg/mL (10-30); SALICYLATE < 2.8 mg/dL (2.8-20.0)
[2023-03-21 15:15] LABS: APPEARANCE,URINE CLEAR (CLEAR); BILIRUBIN,URINE NEGATIVE (NEGATIVE); COLOR,URINE LIGHT-YELLOW (YELLOW); GLUCOSE, URINE (UA) >=1000 mg/dL (NEGATIVE); KETONES,URINE NEGATIVE (NEGATIVE); LEUKOCYTE ESTERASE ,URINE 250 Leu/uL (NEGATIVE); NITRATE,URINE NEGATIVE (NEGATIVE); OCCULT BLOOD,URINE NEGATIVE (NEGATIVE); PH,URINE 5.5 (5.0-8.0); PROTEIN,URINE NEGATIVE (NEGATIVE); UROBILINOGEN,URINE 0.2 mg/dL (0.2-1.0)
[2023-03-21 15:16] LABS: ADD UA MICROSCOPIC YES
[2023-03-21 15:17] LABS: AMPHET/METH SCREEN,URINE NEGATIVE (NEGATIVE); BARBITURATE SCREEN, URINE NEGATIVE (NEGATIVE); BENZODIAZEPINES SCREEN,URINE NEGATIVE (NEGATIVE); CANNABINOID SCREEN,URINE POSITIVE (NEGATIVE); COCAINE SCREEN,URINE POSITIVE (NEGATIVE); OPIATE SCREEN,URINE NEGATIVE (NEGATIVE); PHENCYCLIDINE SCREEN,URINE NEGATIVE (NEGATIVE)
[2023-03-21 15:21] LABS: BACTERIA,URINE FEW /HPF (None Seen); SQUAMOUS EPITHELIAL CELL,UR RARE /HPF (0-2)
[2023-03-21 15:58] VITALS: BP 118/61; PULSE 85; RESP 16; O2SAT 95
== END 2023-03-21 16:12 | disposition home or self-care (01) ==
LOC: EDH 10:09
DX: R44.0 Auditory hallucinations (principal); F32.A Depression, unspecified; E11.9 Type 2 diabetes mellitus without complications; I10 Essential (primary) hypertension; F41.9 Anxiety disorder, unspecified; Z79.4 Long term (current) use of insulin; Z79.84 Long term (current) use of oral hypoglycemic drugs; Z79.899 Other long term (current) drug therapy; Z88.1 Allergy status to other antibiotic agents; Z88.5 Allergy status to narcotic agent
CPT/HCPCS: 99285; 71045; 80053; 80305; 85025; 87088; 81001; 36415; 93005; G0481

== ENCOUNTER 2023-03-25 11:46 | Emergency (ER) | payer MEDICAID ==
[~2023-03-25] VITALS: Ht 152.4 cm; Wt 70.3 kg
[2023-03-25 11:48] VITALS: BP 108/65; PULSE 81; RESP 20
[2023-03-25] MEDS ORDERED: KETOROLAC 30MG VIAL (30MG/ML) IM ONE (12:30)
[2023-03-25] MEDS ORDERED: KETOROLAC 60 MG VIAL (30MG/ML) IM ONE (12:46)
== END 2023-03-25 14:42 | disposition home or self-care (01) ==
LOC: EDH 11:46
DX: S90.32XA Contusion of left foot, initial encounter (principal); M25.572 Pain in left ankle and joints of left foot; I10 Essential (primary) hypertension; E11.9 Type 2 diabetes mellitus without complications; F41.9 Anxiety disorder, unspecified; Z79.84 Long term (current) use of oral hypoglycemic drugs; Z79.899 Other long term (current) drug therapy; Z88.1 Allergy status to other antibiotic agents; Z88.5 Allergy status to narcotic agent; Z90.49 Acquired absence of other specified parts of digestive tract; Z98.890 Other specified postprocedural states; W18.39XA Other fall on same level, initial encounter; Y93.89 Activity, other specified; Y92.89 Other specified places as the place of occurrence of the external cause; Y99.8 Other external cause status
CPT/HCPCS: 99283; 73610; 96372; J1885

== ENCOUNTER → 2023-04-07 | Outpatient (CLI) | payer MEDICAID | END | disposition home or self-care (01) | LOC: RAH 09:02 | PROVIDERS: ATTEND Internal Medicine | DX: S92.312A Displaced fracture of first metatarsal bone, left foot, initial encounter for closed fracture (principal); M25.572 Pain in left ankle and joints of left foot; X58.XXXA Exposure to other specified factors, initial encounter; Y93.89 Activity, other specified; Y92.89 Other specified places as the place of occurrence of the external cause; Y99.8 Other external cause status | CPT/HCPCS: 73630 ==

== ENCOUNTER 2023-11-20 09:39 | Emergency (ER) | payer MEDICAID ==
[~2023-11-20] VITALS: Ht 157.5 cm; Wt 67.6 kg
[~2023-11-20 09:39] MED LIST changes: +BENZ0.5T44 PO; +BUSP30TA2 PO; +CYCL-309 PO; +DAPA10TA PO; +LOVA10TA2 PO; +ONDA-243 PO; -ONDA4TAB10 PO; -PROM25 PO; +QUET50TA24 PO; -ZOLP12.555 PO; +ZOLP12.570 PO
[2023-11-20 10:50] LABS: BASOPHILS # (AUTO) 0.05 K/uL (0.00-0.20); BASOPHILS % (AUTO) 0.3 % (0.0-5.0); EOSINOPHILS # (AUTO) 0.16 K/uL (0.00-0.70); EOSINOPHILS % (AUTO) 0.9 % (0.0-8.0); HEMATOCRIT 40.7 % (36-48); IMMATURE GRANULOCYTE ABSOLUTE 0.05 K/uL (0-1); LYMPHOCYTES # (AUTO) 3.3 K/uL (1.0-4.8); LYMPHOCYTES % (AUTO) 18.5 % (21.0-51.0); MEAN CORPUSCULAR HEMOGLOBIN 27.6 pg (27.0-33.0); MEAN CORPUSCULAR HGB CONC 34.4 g/dL (32.0-36.0); MEAN CORPUSCULAR VOLUME 80.3 fL (79-99); MONOCYTES # (AUTO) 1.3 K/uL (0.1-1.0); MONOCYTES % (AUTO) 7.3 % (3.0-13.0); NEUTROPHILS # (AUTO) 12.8 K/uL (1.8-7.7); NEUTROPHILS % (AUTO) 72.7 % (40.0-77.0); PLATELET COUNT (AUTO) 345 K/uL (130-400); RED BLOOD CELL COUNT(AUTO) 5.07 MIL/uL (4.00-5.50); RED CELL DISTRIBUTION WIDTH 13.8 % (11.0-15.5); WHITE BLOOD COUNT (AUTO) 17.6 K/uL (4.8-10.8)
[2023-11-20] MEDS: 0.9%NACL 1000ML 1,000 ML IV ONE (10:52)
[2023-11-20] MEDS: ONDANSETRON 4MG INJ IVP ONE (10:52)
[2023-11-20 11:01] LABS: CREATININE 1.1 mg/dL (0.5-1.0)
[2023-11-20 11:06] LABS: ALBUMIN 4.7 g/dL (3.5-5.0); BILIRUBIN,TOTAL 0.7 mg/dL (0.2-1.0); TOTAL PROTEIN, SERUM 7.9 g/dL (6.0-8.3)
[2023-11-20 12:13] LABS: APPEARANCE,URINE CLEAR (CLEAR); BILIRUBIN,URINE NEGATIVE (NEGATIVE); COLOR,URINE YELLOW (YELLOW); GLUCOSE, URINE (UA) >=1000 mg/dL (NEGATIVE); KETONES,URINE NEGATIVE (NEGATIVE); LEUKOCYTE ESTERASE ,URINE MODERATE Leu/uL (NEGATIVE); NITRATE,URINE NEGATIVE (NEGATIVE); OCCULT BLOOD,URINE NEGATIVE (NEGATIVE); PROTEIN,URINE NEGATIVE (NEGATIVE); UROBILINOGEN,URINE 0.2 mg/dL (0.2-1.0)
[2023-11-20 12:16] LABS: ADD UA MICROSCOPIC YES
[2023-11-20 12:25] LABS: BACTERIA,URINE Few /HPF (None Seen); RBC,URINE 0-1 /HPF (0-1); SQUAMOUS EPITHELIAL CELL,UR Rare /HPF (0-2)
[2023-11-20] MEDS ORDERED: AMOX500T2 PO (13:18)
[2023-11-20] MEDS ORDERED: SULF1TAB42 PO (13:22)
[2023-11-20] MEDS ORDERED: ZOSYN 3.375GM +NS 50ML IVPB ONE (13:30)
[2023-11-20] MEDS ORDERED: SULFAMETHOX-TMP DS 800/160 TAB PO SCH (13:30)
[2023-11-20] MEDS: SULFAMETHOX-TMP DS 800/160 TAB PO ONE (13:32)
[2023-11-20 13:33] VITALS: BP 115/76; PULSE 80; RESP 16; O2SAT 100
== END 2023-11-20 13:38 | disposition home or self-care (01) ==
LOC: EDH 09:39
DX: N39.0 Urinary tract infection, site not specified (principal); F41.9 Anxiety disorder, unspecified; E11.9 Type 2 diabetes mellitus without complications; I10 Essential (primary) hypertension; Z90.49 Acquired absence of other specified parts of digestive tract
CPT/HCPCS: 99283; 96374; 96361; 80053; 85025; 87088; 81001; 36415; J7030; J2405

== ENCOUNTER 2024-02-12 10:14 | Emergency (ER) | payer SELFPAY ==
[~2024-02-12] VITALS: Ht 160 cm; Wt 56.2 kg
[~2024-02-12 10:14] MED LIST changes: +SULF1TAB42 PO
[2024-02-12] MEDS: dexaMETHasone SOD PHOSPHATE 4 MG/ML 1ML VIAL IM ONE (11:35)
[2024-02-12] MEDS: acetaMINOPHEN 500 MG TABLET PO ONE (11:36)
[2024-02-12 12:03] LABS: APPEARANCE,URINE CLEAR (CLEAR); BILIRUBIN,URINE NEGATIVE (NEGATIVE); COLOR,URINE YELLOW (YELLOW); GLUCOSE, URINE (UA) NEGATIVE (NEGATIVE); KETONES,URINE NEGATIVE (NEGATIVE); LEUKOCYTE ESTERASE ,URINE MODERATE Leu/uL (NEGATIVE); NITRATE,URINE NEGATIVE (NEGATIVE); OCCULT BLOOD,URINE NEGATIVE (NEGATIVE); PROTEIN,URINE NEGATIVE (NEGATIVE); UROBILINOGEN,URINE 0.2 mg/dL (0.2-1.0)
[2024-02-12 12:08] LABS: ADD UA MICROSCOPIC YES
[2024-02-12 12:09] LABS: BACTERIA,URINE Rare /HPF (None Seen); RBC,URINE 0-1 /HPF (0-1)
[2024-02-12] MEDS ORDERED: IBUP-2077 PO (14:08)
[2024-02-12] MEDS ORDERED: MACR100 PO (14:08)
[2024-02-12 14:43] VITALS: BP 121/80; PULSE 82; RESP 16; O2SAT 100
== END 2024-02-12 14:45 | disposition home or self-care (01) ==
LOC: EDH 10:14
DX: N39.0 Urinary tract infection, site not specified (principal); M47.892 Other spondylosis, cervical region; M47.896 Other spondylosis, lumbar region; I10 Essential (primary) hypertension; E11.9 Type 2 diabetes mellitus without complications; F41.9 Anxiety disorder, unspecified; F32.A Depression, unspecified; Z79.84 Long term (current) use of oral hypoglycemic drugs; Z79.899 Other long term (current) drug therapy; Z90.49 Acquired absence of other specified parts of digestive tract; Z98.890 Other specified postprocedural states; Z88.5 Allergy status to narcotic agent; Z88.8 Allergy status to other drugs, medicaments and biological substances
CPT/HCPCS: 99284; 96374; 87086; 81001; 72040; 72100; J1100

== ENCOUNTER 2024-02-20 11:11 | Emergency (ER) | payer SELFPAY ==
[~2024-02-20] VITALS: Ht 157.5 cm; Wt 54.9 kg
[~2024-02-20 11:11] MED LIST changes: +IBUP-2077 PO; +MACR100 PO
[2024-02-20 11:50] LABS: BASOPHILS # (AUTO) 0.03 K/uL (0.00-0.20); BASOPHILS % (AUTO) 0.3 % (0.0-5.0); EOSINOPHILS # (AUTO) 0.63 K/uL (0.00-0.70); EOSINOPHILS % (AUTO) 5.7 % (0.0-8.0); HEMATOCRIT 37.5 % (36-48); IMMATURE GRANULOCYTE ABSOLUTE 0.03 K/uL (0-1); LYMPHOCYTES # (AUTO) 2.8 K/uL (1.0-4.8); MEAN CORPUSCULAR HEMOGLOBIN 28.3 pg (27.0-33.0); MEAN CORPUSCULAR HGB CONC 33.3 g/dL (32.0-36.0); MEAN CORPUSCULAR VOLUME 84.8 fL (79-99); MONOCYTES % (AUTO) 8.7 % (3.0-13.0); NEUTROPHILS # (AUTO) 6.7 K/uL (1.8-7.7); PLATELET COUNT (AUTO) 303 K/uL (130-400); RED BLOOD CELL COUNT(AUTO) 4.42 MIL/uL (4.00-5.50); WHITE BLOOD COUNT (AUTO) 11.1 K/uL (4.8-10.8)
[2024-02-20 11:53] LABS: APPEARANCE,URINE CLEAR (CLEAR); BILIRUBIN,URINE NEGATIVE (NEGATIVE); COLOR,URINE COLORLESS (YELLOW); GLUCOSE, URINE (UA) NEGATIVE (NEGATIVE); KETONES,URINE NEGATIVE (NEGATIVE); LEUKOCYTE ESTERASE ,URINE 250 Leu/uL (NEGATIVE); NITRATE,URINE NEGATIVE (NEGATIVE); OCCULT BLOOD,URINE NEGATIVE (NEGATIVE); PH,URINE 5.5 (5.0-8.0); PROTEIN,URINE NEGATIVE (NEGATIVE); UROBILINOGEN,URINE 0.2 mg/dL (0.2-1.0)
[2024-02-20 11:54] LABS: ADD UA MICROSCOPIC YES
[2024-02-20 11:56] LABS: BACTERIA,URINE RARE /HPF (None Seen); MUCUS,URINE RARE LPF (None Seen); RBC,URINE 0-1 /HPF (0-1); SQUAMOUS EPITHELIAL CELL,UR RARE /HPF (0-2)
[2024-02-20 11:59] LABS: CREATININE 0.8 mg/dL (0.5-1.0); POTASSIUM 3.7 mmol/L (3.5-5.1)
[2024-02-20] MEDS: ondanSETRON 4MG INJ IVP ONE (12:01)
[2024-02-20] MEDS: 0.9%NACL 1000ML 1,000 ML IV ONE (12:01)
[2024-02-20] MEDS ORDERED: ONDA-243 PO (13:05)
[2024-02-20 13:18] VITALS: BP 140/90; PULSE 78; RESP 18; TEMP 97.9; O2SAT 98
== END 2024-02-20 13:19 | disposition home or self-care (01) ==
LOC: EDH 11:11
DX: S00.03XA Contusion of scalp, initial encounter (principal); G44.309 Post-traumatic headache, unspecified, not intractable; E11.9 Type 2 diabetes mellitus without complications; F31.9 Bipolar disorder, unspecified; F41.9 Anxiety disorder, unspecified; Z79.84 Long term (current) use of oral hypoglycemic drugs; Z90.49 Acquired absence of other specified parts of digestive tract; Z79.899 Other long term (current) drug therapy; Z98.890 Other specified postprocedural states; Z88.1 Allergy status to other antibiotic agents; Z88.5 Allergy status to narcotic agent; Z88.8 Allergy status to other drugs, medicaments and biological substances; W18.39XA Other fall on same level, initial encounter; Y93.89 Activity, other specified; Y92.89 Other specified places as the place of occurrence of the external cause; Y99.8 Other external cause status
CPT/HCPCS: 99285; 96374; 70450; 96361; 84484; 80048; 85025; 87086; 81001; 36415; 93005; J7030; J2405

== ENCOUNTER 2024-02-23 03:02 | Emergency (ER) | payer SELFPAY ==
[~2024-02-23] VITALS: Ht 157.5 cm; Wt 63.0 kg
[2024-02-23] MEDS: morPHINE 2 MG SYG IM ONE (03:50)
[2024-02-23 04:24] VITALS: BP 129/73; PULSE 76; RESP 18; TEMP 98.2; O2SAT 99
== END 2024-02-23 04:26 | disposition home or self-care (01) ==
LOC: EDH 03:02
DX: S16.1XXA Strain of muscle, fascia and tendon at neck level, initial encounter (principal); E11.9 Type 2 diabetes mellitus without complications; F31.9 Bipolar disorder, unspecified; F41.9 Anxiety disorder, unspecified; Z79.84 Long term (current) use of oral hypoglycemic drugs; Z79.899 Other long term (current) drug therapy; Z90.49 Acquired absence of other specified parts of digestive tract; Z98.890 Other specified postprocedural states; Z88.1 Allergy status to other antibiotic agents; Z88.5 Allergy status to narcotic agent; Z88.8 Allergy status to other drugs, medicaments and biological substances; X58.XXXA Exposure to other specified factors, initial encounter; Y93.89 Activity, other specified; Y92.89 Other specified places as the place of occurrence of the external cause; Y99.8 Other external cause status
CPT/HCPCS: 99284; 96372; J2270

== ENCOUNTER 2024-03-13 08:14 | Inpatient (IN) | payer SELFPAY ==
[~2024-03-13] VITALS: Ht 157.5 cm; Wt 53.5 kg
[2024-03-13 09:22] LABS: BASOPHILS # (AUTO) 0.04 K/uL (0.00-0.20); BASOPHILS % (AUTO) 0.3 % (0.0-5.0); EOSINOPHILS # (AUTO) 0.45 K/uL (0.00-0.70); EOSINOPHILS % (AUTO) 3.2 % (0.0-8.0); HEMATOCRIT 37.7 % (36-48); LYMPHOCYTES # (AUTO) 2.9 K/uL (1.0-4.8); LYMPHOCYTES % (AUTO) 20.5 % (21.0-51.0); MEAN CORPUSCULAR HGB CONC 32.6 g/dL (32.0-36.0); MEAN CORPUSCULAR VOLUME 88.9 fL (79-99); MONOCYTES # (AUTO) 1.3 K/uL (0.1-1.0); NEUTROPHILS # (AUTO) 9.4 K/uL (1.8-7.7); NEUTROPHILS % (AUTO) 66.3 % (40.0-77.0); PLATELET COUNT (AUTO) 315 K/uL (130-400); RED BLOOD CELL COUNT(AUTO) 4.24 MIL/uL (4.00-5.50); RED CELL DISTRIBUTION WIDTH 14.7 % (11.0-15.5); WHITE BLOOD COUNT (AUTO) 14.1 K/uL (4.8-10.8)
[2024-03-13 09:24] LABS: CREATININE 0.9 mg/dL (0.5-1.0); POTASSIUM 4.3 mmol/L (3.5-5.1)
[2024-03-13 09:30] LABS: INR 0.95 (0.85-1.15); PROTHROMBIN TIME 10.3 SEC (9.6-11.6)
[2024-03-13 11:17] LABS: APPEARANCE,URINE CLOUDY (CLEAR); BILIRUBIN,URINE NEGATIVE (NEGATIVE); COLOR,URINE LIGHT-YELLOW (YELLOW); GLUCOSE, URINE (UA) 30 mg/dL (NEGATIVE); KETONES,URINE NEGATIVE (NEGATIVE); LEUKOCYTE ESTERASE ,URINE 500 Leu/uL (NEGATIVE); NITRATE,URINE NEGATIVE (NEGATIVE); PROTEIN,URINE NEGATIVE (NEGATIVE); UROBILINOGEN,URINE 0.2 mg/dL (0.2-1.0)
[2024-03-13 11:31] LABS: ADD UA MICROSCOPIC YES
[2024-03-13 11:35] LABS: BACTERIA,URINE RARE /HPF (None Seen); MUCUS,URINE RARE LPF (None Seen); NON-SQUAMOUS EPITHELIAL CELL 2 /HPF (0-2); OTHER CASTS, URINE 1 /LPF (None Seen); SQUAMOUS EPITHELIAL CELL,UR FEW /HPF (0-2); TRANSITIONAL EPI CELLS,URINE FEW /HPF (None Seen); WBC,URINE >100 /HPF (0-1)
[2024-03-13] MEDS: levoFLOXacin 750 MG/D5W 150ML BAG IV SCH (12:49)
[2024-03-13] MEDS: traMADol HCL 50 MG TABLET PO PRN (15:12)
[2024-03-13] MEDS ORDERED: QUET150T20 PO (20:12)
[2024-03-13] MEDS ORDERED: BENZ1TAB83 PO (20:15)
[2024-03-13] MEDS ORDERED: DIVA500T69 PO (20:15)
[2024-03-13] MEDS ORDERED: BUSP30TA2 PO (20:15)
[2024-03-13] MEDS ORDERED: ESCI20TA38 PO (20:15)
[2024-03-13] MEDS ORDERED: NAPR-1023 PO (21:04)
[2024-03-13] MEDS ORDERED: GABA-1405 PO (21:04)
[2024-03-13] MEDS ORDERED: OLAN5TAB76 PO (21:04)
[2024-03-13] MEDS ORDERED: DIVA500T52 PO (21:04)
[2024-03-14] VITALS (7 sets, daily range): BP systolic 101–128; BP diastolic 58–78; PULSE 82–89; RESP 18–20; TEMP 97.8–98.8; O2SAT 96
[2024-03-14] MEDS ORDERED: ondanSETRON 4MG INJ IVP PRN (07:00)
[2024-03-14] MEDS: ENOXAPARIN SODIUM 30 MG/0.3 ML SQ SCH (08:22)
[2024-03-14] MEDS ORDERED: NAPROXEN 500 MG TABLET PO SCH (19:00)
[2024-03-14] MEDS: GABAPENTIN 300 MG CAPSULE PO SCH (20:45)
[2024-03-14] MEDS: oLANZapine 5 MG TAB PO SCH (20:46)
[2024-03-14] MEDS: busPIRone HCL 5 MG TABLET PO SCH (20:46)
[2024-03-14] MEDS: BENZTROPINE 0.5MG TAB PO SCH (20:46)
[2024-03-14] MEDS ORDERED: DIVALPROEX SODIUM 500 MG PO SCH (21:00)
[2024-03-14] MEDS: DIVALPROEX SODIUM PO SCH (21:32)
[2024-03-14] MEDS: QUETIAPINE FUMARATE 150 MG PO SCH (21:32)
[2024-03-15] VITALS: BP 135/67; PULSE 85; RESP 18; TEMP 98.1
[2024-03-15 05:29] VITALS: BP 112/72; PULSE 92; RESP 18; TEMP 98
[2024-03-15 06:02] LABS: HEMATOCRIT 36.8 % (36-48); MEAN CORPUSCULAR HEMOGLOBIN 29.1 pg (27.0-33.0); MEAN CORPUSCULAR HGB CONC 32.6 g/dL (32.0-36.0); MEAN CORPUSCULAR VOLUME 89.3 fL (79-99); RED BLOOD CELL COUNT(AUTO) 4.12 MIL/uL (4.00-5.50); RED CELL DISTRIBUTION WIDTH 14.5 % (11.0-15.5); WHITE BLOOD COUNT (AUTO) 12.4 K/uL (4.8-10.8)
[2024-03-15 06:15] LABS: CREATININE 0.9 mg/dL (0.5-1.0); POTASSIUM 4.2 mmol/L (3.5-5.1)
[2024-03-15 07:50] VITALS: BP 111/78; PULSE 85; RESP 19; TEMP 98.2
[2024-03-15 08:00] VITALS: O2SAT 99
[2024-03-15] MEDS: ESCITALOPRAM OXALATE 30 MG PO SCH (09:00)
[2024-03-15 12:00] VITALS: BP 143/68; PULSE 87; RESP 19; TEMP 98.4
[2024-03-15 12:21] VITALS: TEMP 98.2
[2024-03-15] MEDS: acetaMINOPHEN 325 MG TAB PO PRN (12:21)
== END 2024-03-15 14:20 | disposition home or self-care (01) | DRG 690 ==
LOC: EDH 08:14 → EDHIP 08:15 → 3DH 22:45
PROVIDERS: ADMIT Internal Medicine Infectious Disease; ATTEND Internal Medicine Infectious Disease
DX: N39.0 Urinary tract infection, site not specified (principal); E11.649 Type 2 diabetes mellitus with hypoglycemia without coma; E86.0 Dehydration; B95.1 Streptococcus, group B, as the cause of diseases classified elsewhere; E78.5 Hyperlipidemia, unspecified; I10 Essential (primary) hypertension; F32.A Depression, unspecified; D72.829 Elevated white blood cell count, unspecified; G89.29 Other chronic pain; M54.9 Dorsalgia, unspecified; Z83.3 Family history of diabetes mellitus; Z79.899 Other long term (current) drug therapy
CPT/HCPCS: 36415; 70450; 73630; 80048; 81001; 82550; 82948; 83735; 84484; 85025; 85027; 85610; 85730; 87086; 93005; G0378; J1650; J1956

== ENCOUNTER 2024-05-23 10:00 | Emergency (ER) | payer SELFPAY ==
[~2024-05-23] VITALS: Ht 167.6 cm; Wt 71.2 kg
[~2024-05-23 10:00] MED LIST changes: -ALBU1.252 IH; -ALBUHFA IH; -ALPR1TAB2 PO; -AMIT25TA9 PO; -BENZ-39 PO; -BENZ0.5T44 PO; +BENZ1TAB83 PO; -CHLO25 PO; -CYCL-309 PO; -DAPA10TA PO; -DICL50TA9 PO; -DIVA-78 PO; +DIVA500T52 PO; +DIVA500T69 PO; +ESCI20TA38 PO; -FIORC PO; -FLUO40CA7 PO; +GABA-1405 PO; -GABA300S3 PO; -HYDR-3421 PO; -IBUP-2070 PO; -IBUP-2077 PO; -INSU10VI3 SQ; -LORA10TA7 PO; -LOVA10TA2 PO; -MACR100 PO; -METF-445 PO; +NAPR-1023 PO; -NAPR500T6 PO; +OLAN5TAB76 PO; -OXYC-165 PO; +QUET150T20 PO; -QUET50TA24 PO; -SULF1TAB42 PO; -ZOLP12.570 PO
[2024-05-23 10:02] VITALS: TEMP 98
--- NOTE | 2024-05-23 10:10 | NUR ---
PT JUST NOW PLACED IN MY ED [facility]
[2024-05-23] MEDS ORDERED: KETO10TA2 PO (10:22)
--- NOTE | 2024-05-23 10:23 | ERN ---
ED Note History of Present Illness Stated Complaint: TMJ Chief Complaint: Multiple Complaints Time Seen by MD: 10:04 Dictation: PATIENT IS A 53-YEAR-OLD FEMALE COMING IN WITH BILATERAL TMJ PAIN WORSE ON THE LEFT, AND AFTER SHE TRIES TO EAT FOR THE LAST SEVERAL WEEKS. SHE HAS NO DENTAL PAIN, STATES SHE HAS ALREADY BEEN TO HER PRIMARY CARE DOCTOR WHO WAS TREATED FOR TMJ DISEASE AND THEN TOLD TO FIND A DENTIST. SHE RAN OUT OF THE MEDICATIONS HE GAVE HIM, DECIDED TO COME TO [facility] [place]. PATIENT FURTHER STATES THAT SHE HAD THE PAIN MORE THAN 10 YEARS AGO AND WAS TOLD BY HER DENTIST AFTER BEING DIAGNOSED WITH TMJ DISEASE, THERE WAS NOTHING HE COULD DO Allergies: Coded Allergies: ceftriaxone (Verified Allergy, Severe, HIVES, 07/11/15) codeine (Verified Allergy, Unknown, 11/18/13) erythromycin base (Verified Allergy, Unknown, 11/18/13) Home Meds Active Scripts Ketorolac Tromethamine (Ketorolac Tromethamine) 10 Mg Tablet, 1 TAB PO Q6HPRN PRN for pain for 5 Days, #20 TAB 0 Refills Prov:RENETTA DIANA SUPERVISORY EXAMINER 05/23/24 Ondansetron (Ondansetron Odt) 4 Mg Tab.rapdis, 4 MG PO Q6HPRN PRN for nausea, #16 TAB 0 Refills Prov:RENETTA DIANA SUPERVISORY EXAMINER 02/20/24 Reported Medications Divalproex Sodium (Divalproex Sodium ER) 500 Mg Tab.er.24h, 500 MG PO HS, TAB 03/13/24 Olanzapine (Olanzapine) 5 Mg Tablet, 5 MG PO HS, TAB 03/13/24 Gabapentin (Gabapentin) 600 Mg Tablet, 600 MG PO TID, TAB 03/13/24 Naproxen (Naproxen) 500 Mg Tablet, 500 MG PO AD, TAB 03/13/24 Benztropine Mesylate (Benztropine Mesylate) 1 Mg Tablet, 1 MG PO BID, TAB 03/13/24 Escitalopram Oxalate (Escitalopram Oxalate) 20 Mg Tablet, 30 MG PO AM, TAB 03/13/24 Buspirone HCl (Buspirone HCl) 30 Mg Tablet, 30 MG PO BID, TAB 03/13/24 Divalproex Sodium (Depakote ER) 500 Mg Tab.er.24h, 500 MG PO HS, TAB 03/13/24 Quetiapine Fumarate (Quetiapine Fumarate) 150 Mg Tablet, 150 MG PO HS, TAB 03/13/24 Past Medical History Past Medical History: Diabetes-Type II Additional Past Medical Hx: CHRONIC BACK PAIN Surgical History: Cholecystectomy Surgical History Other: CATARACTS Social History: Negative, Lives with family, Other History: Not Applicable Review of System Dictation CONSTITUTIONAL: NEGATIVE EXCEPT FOR HPI HEAD/FACE: NEGATIVE EXCEPT FOR HPI EENT: NEGATIVE EXCEPT FOR HPI BILATERAL TMJ PAIN, GREATER ON THE LEFT RESPIRATORY: NEGATIVE EXCEPT FOR HPI GASTROINTESTINAL/ABDOMINAL: NEGATIVE EXCEPT FOR HPI GENITOURINARY: NEGATIVE EXCEPT FOR HPI MUSCULOSKELETAL: NEGATIVE EXCEPT FOR HPI INTEGUMENTARY: NEGATIVE EXCEPT FOR HPI NEUROLOGICAL/PSYCH: NEGATIVE EXCEPT FOR HPI HEMATOLOGIC/LYMPHATIC: NEGATIVE EXCEPT FOR HPI ALL SYSTEMS NEGATIVE, EXCEPT NOTED ABOVE. 13 POINT REVIEW OF SYSTEMS ASSESSED AND ALL NEGATIVE EXCEPT FOR ABOVE. Initial Vital Sign VS Vital Signs Date Time Temp Pulse Resp B/P (MAP) Pulse Ox O2 Delivery O2 Flow Rate FiO2 05/23/24 10:02 98.8 78 16 157/88 99 Room Air* 0 21 Physical Exam Dictation VITAL SIGNS REVIEWED GENERAL APPEARANCE: ALERT, ORIENTED X 3, MODERATE ACUTE DISTRESS, WELL DEVELOPED, NOURISHED. HEAD AND FACE: NON-TRAUMATIC. EYES: PERRL, PINK CONJUNCTIVAS, EYELID NO TRAUMA, ANTERIOR CHAMBER WITH ARCUS SENILIS. EARS: PINNAS INTACT AND NO SIGNS OF TRAUMA OR ERYTHEMA EAR CANALS CLEAR AND NO DISCHARGE TM NO ERYTHEMA NOSE: NO DISCHARGE, NO BLEEDING. OROPHARYNX: MOUTH NORMAL, TONGUE PINK, POSITIVE TMJ CREPITATION, GREATER ON THE LEFT WITH RANGE OF MOTION. PHARYNX CLEAR,NO ERYTHEMA, TONSILS NO EXUDATES, NO ABSCESSES NOTED, MUCOUS MEMBRANE MOIST NECK: SUPPLE, NON-TENDER, NO THYROMEGALY, NO MASSES, NO JVD, NO BRUITS BREAST:DEFERRED CHEST:NO TENDERNESS, NO CREPITUS, NO PARADOXICAL MOVEMENT, NO RETRACTIONS LUNGS:CLEAR, WELL-VENTILATED, SYMMETRIC, NO RALES, NO WHEEZING, NO RHONCHI, NO STRIDOR, GOOD BREATH SOUNDS BILATERALLY HEART: REGULAR RATE, REGULAR RHYTHM, NO MURMUR, NO GALLOPS VASCULAR: NO PERIPHERAL EDEMA, ABDOMEN: SOFT, POSITIVE BOWEL SOUNDS, NONDISTENDED, NO GUARDING, NONTENDER, NO REBOUND, NO MASSES NO HEPATOMEGALY, NO SPLENOMEGALY, NO HANEY'S SIGN, NO HERNIAS. RECTAL: DEFERRED GENITAL: DEFERRED NEUROLOGICAL: NORMAL SPEECH, MOTOR FUNCTION INTACT, SENSORY FUNCTION INTACT MUSCULOSKELETAL: NECK NONTENDER, FULL RANGE OF MOTION, BACK NONTENDER, FULL RANGE OF MOTION, EXTREMITIES: NONTENDER, FULL RANGE OF MOTION SKIN: COLOR PINK, DRY, NO TURGOR, NO RASH, NO LACERATIONS, NO ABRASIONS, NO CONTUSIONS. LYMPHATIC: DEFERRED ED Course ED Course Orders Procedure Category Date Status Time Ketorolac 60mg/2ml PHA 05/23/24 Complete (Toradol 60mg/2ml) 10:30 Current Medications Medications (Trade) Dose Ordered Sig/Gabi Route PRN Reason Start Time Stop Time Status Last Admin Dose Admin Ketorolac Tromethamine (toRADol 60MG/ 2ML) 60 mg ONCE ONCE IM 05/23/24 10:30 05/23/24 10:31 DC 05/23/24 10:36 Vital Signs Date Time Temp Pulse Resp B/P (MAP) Pulse Ox O2 Delivery O2 Flow Rate FiO2 05/23/24 10:02 98.1 78 16 157/88 98 Room Air 0 05/23/24 10:02 98.8 78 16 157/88 99 Room Air* 0 21 TEN 20, PATIENT WAS MADE AWARE SHE NEEDS TO FOLLOW UP WITH A DENTIST OR ORAL MAXILLOFACIAL SURGEON. SHE WAS GIVEN A SHOT OF TORADOL AND WE WILL BE SENT HOME WITH KETOROLAC TABLETS AND TOLD TO LOOKING THE YELLOW PAGES FOR ORAL MA XILLOFACIAL OR GENERAL DENTIST WHO TREATS BRUXISM AND TMJ DISEASE Medical Decision Making MDM MEDICAL DECISION-MAKING BASED ON PHYSICAL EXAMINATION AND TREATMENT FOR TMJ DISEASE. PATIENT GIVEN TORADOL IN THE EMERGENCY ROOM, DISCHARGED HOME WITH KETOROLAC TOLD TO FOLLOW UP IN THE YELLOW PAGES FOR A DENTIST WHO TREATS TMJ OR AN ORAL MAXILLOFACIAL SURGEON DX & DISP Disposition: Discharge Departure Impression: Primary Impression: TMJ disease Condition: Stable Scripts Ketorolac Tromethamine (Ketorolac Tromethamine) 10 Mg Tablet 1 TAB PO Q6HPRN PRN for pain for 5 Days, #20 TAB 0 Refills Prov: RENETTA DIANA SUPERVISORY EXAMINER 05/23/24 Additional Instructions: FOLLOW-UP WITH PRIMARY CARE PROVIDER IN 1 TO 2 DAYS. TAKE MEDICATIONS DIRECTED HERE IN THE EMERGENCY ROOM. OKAY TO CONTINUE HOME MEDICATIONS UNLESS OTHERWISE DISCUSSED DURING YOUR VISIT IN THE EMERGENCY ROOM TODAY. RETURN TO YOUR NEAREST EMERGENCY ROOM IF SYMPTOMS WORSEN OR IF THERE IS NO IMPROVEMENT. CALL 911 IF YOU NEED IMMEDIATE ASSISTANCE. TAKE TYLENOL OR MOTRIN [id number] NEEDED AND IF NO CONTRAINDICATIONS ARE PRESENT. INCREASE ORAL HYDRATION. A WOUND CULTURE OR URINE CULTURE WAS ORDERED HERE IN THE EMERGENCY ROOM DEPARTMENT PLEASE FOLLOW-UP WITH PRIMARY CARE PROVIDER AND ADVISE THEM TO GET REPEAT PORTS FROM OUR FACILITY. IF YOU HAD ANY ALMITA WRAP/SPLINTS THAT WERE APPLIED HERE, PLEASE DO NOT REMOVE THEM UNTIL YOU SEE YOUR PRIMARY CARE OR SPECIALTY. TAKE TORADOL DIRECTED EVERY 6 HOURS WITH FOOD. LOOKING THE YELLOW PAGES FOR A DENTIST WHO TREATS TMJ DISEASE OR SEE AN ORAL MAXILLOFACIAL SURGEON FOR FOLLOW UP MED MANAGEMENT Referrals: RACHEL CARDOSO MD (PCP) Time of Disposition: 10:22 I have reviewed the case, and I agree with, Diagnosis and Plan RENETTA DIANA NP May 23, 2024 10:23
[2024-05-23] MEDS: ketOROlac 60 MG VIAL (30MG/ML) IM ONE (10:36)
[2024-05-23 11:07] VITALS: BP 156/84; PULSE 77; RESP 17; O2SAT 99
== END 2024-05-23 11:17 | disposition home or self-care (01) ==
LOC: EDH 10:00
DX: M26.602 Left temporomandibular joint disorder, unspecified (principal); G89.29 Other chronic pain; M54.9 Dorsalgia, unspecified; Z79.899 Other long term (current) drug therapy; Z88.1 Allergy status to other antibiotic agents; Z88.5 Allergy status to narcotic agent; Z90.49 Acquired absence of other specified parts of digestive tract; E11.9 Type 2 diabetes mellitus without complications
CPT/HCPCS: 99284; 96372; J1885

== ENCOUNTER 2024-06-22 15:39 | Emergency (ER) | payer SELFPAY ==
[~2024-06-22] VITALS: Ht 157.5 cm; Wt 70.8 kg
[~2024-06-22 15:39] MED LIST changes: +KETO10TA2 PO
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
[2024-06-22] MEDS: CYCLOBENZAPRINE HCL 10 MG TABLET PO ONE (16:44)
[2024-06-22] MEDS: ketOROlac 60 MG VIAL (30MG/ML) IM ONE (16:44)
[2024-06-22] MEDS ORDERED: IBUP-2077 PO (17:01)
[2024-06-22] MEDS ORDERED: CYCL-309 PO (17:02)
[2024-06-22 17:08] VITALS: BP 132/68; PULSE 80; RESP 18; TEMP 97.1; O2SAT 98
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
== END 2024-06-22 17:10 | disposition home or self-care (01) ==
LOC: EDH 15:39
DX: S16.1XXA Strain of muscle, fascia and tendon at neck level, initial encounter (principal); S29.012A Strain of muscle and tendon of back wall of thorax, initial encounter; T74.21XA Adult sexual abuse, confirmed, initial encounter; M47.812 Spondylosis without myelopathy or radiculopathy, cervical region; M47.814 Spondylosis without myelopathy or radiculopathy, thoracic region; E11.9 Type 2 diabetes mellitus without complications; Z79.899 Other long term (current) drug therapy; Z88.1 Allergy status to other antibiotic agents; Z88.5 Allergy status to narcotic agent; Z90.49 Acquired absence of other specified parts of digestive tract
CPT/HCPCS: 99284; 72040; 72070; 96372; J1885

== ENCOUNTER 2024-10-11 10:50 | Emergency (ER) | payer SELFPAY ==
[~2024-10-11] VITALS: Ht 154.9 cm; Wt 72.6 kg
[~2024-10-11 10:50] MED LIST changes: +CYCL-309 PO; +IBUP-2077 PO; -NAPR-1023 PO; +NAPR-1194 PO
--- NOTE | 2024-10-11 11:01 | ERN ---
ED Note History of Present Illness Stated Complaint: DIARRHEA,VOMITING Chief Complaint: Hyperglycemia Time Seen by MD: 10:51 Dictation: PATIENT IS A 54-YEAR-OLD FEMALE COMING IN TODAY WITH NAUSEA VOMITING AND DIARRHEA ONSET WAS YESTERDAY. NO FEVER NO CHILLS NO FLANK PAIN NO CHANGE IN URINATION. SHE IS A DIABETIC STATES SHE HAS NOT BEEN COMPLIANT WITH HER MEDS BECAUSE SHE DOES NOT HAVE INSURANCE AND RAN OUT OF TEST STRIPS. SHE WENT TO SEE HER PRIMARY CARE DOCTOR TODAY, DR. FOFANA WHO ADVISED HER TO GO TO THE EMERGENCY ROOM Allergies: Coded Allergies: ceftriaxone (Verified Allergy, Severe, HIVES, 07/11/15) codeine (Verified Allergy, Unknown, 11/18/13) erythromycin base (Verified Allergy, Unknown, 11/18/13) Home Meds Active Scripts Levofloxacin (Levofloxacin) 500 Mg Tablet, 1 TAB PO DAILY for 10 Days, #10 TAB 0 Refills Prov:RENETTA DIANA NP 10/11/24 Cyclobenzaprine HCl (Cyclobenzaprine HCl) 10 Mg Tablet, 1 TAB PO TID for muscle spasms for 10 Days, #30 TAB 0 Refills Prov:RENETTA DIANA NP 06/22/24 Ibuprofen (Ibuprofen 800 mg Tab) 800 Mg Tab, 800 MG PO Q8H PRN for fever or pain, #30 TAB 0 Refills Prov:RENETTA DIANA NP 06/22/24 Ketorolac Tromethamine (Ketorolac Tromethamine) 10 Mg Tablet, 1 TAB PO Q6HPRN PRN for pain for 5 Days, #20 TAB 0 Refills Prov:RENETTA DIANA NP 05/23/24 Ondansetron (Ondansetron Odt) 4 Mg Tab.rapdis, 4 MG PO Q6HPRN PRN for nausea, #16 TAB 0 Refills Prov:RENETTA DIANA NP 02/20/24 Reported Medications Divalproex Sodium (Divalproex Sodium ER) 500 Mg Tab.er.24h, 500 MG PO HS, TAB 03/13/24 Olanzapine (Olanzapine) 5 Mg Tablet, 5 MG PO HS, TAB 03/13/24 Gabapentin (Gabapentin) 600 Mg Tablet, 600 MG PO TID, TAB 03/13/24 Naproxen (Naproxen) 500 Mg Tablet, 500 MG PO AD, TAB 03/13/24 Benztropine Mesylate (Benztropine Mesylate) 1 Mg Tablet, 1 MG PO BID, TAB 03/13/24 Escitalopram Oxalate (Escitalopram Oxalate) 20 Mg Tablet, 30 MG PO AM, TAB 03/13/24 Buspirone HCl (Buspirone HCl) 30 Mg Tablet, 30 MG PO BID, TAB 03/13/24 Divalproex Sodium (Depakote ER) 500 Mg Tab.er.24h, 500 MG PO HS, TAB 03/13/24 Quetiapine Fumarate (Quetiapine Fumarate) 150 Mg Tablet, 150 MG PO HS, TAB 03/13/24 Past Medical History Past Medical History: Diabetes-Type II Additional Past Medical Hx: CHRONIC BACK/NECK PAIN Surgical History: Cholecystectomy Surgical History Other: CATARACTS Social History: Negative, Lives with family, Other History: Not Applicable RN Note Reviewed/Agreed w/PFSH: Yes Review of System Dictation CONSTITUTIONAL: NEGATIVE EXCEPT FOR HPI HEAD/FACE: NEGATIVE EXCEPT FOR HPI EENT: NEGATIVE EXCEPT FOR HPI RESPIRATORY: NEGATIVE EXCEPT FOR HPI GASTROINTESTINAL/ABDOMINAL: NEGATIVE EXCEPT FOR HPI NAUSEA VOMITING WITH DIARR HEA GENITOURINARY: NEGATIVE EXCEPT FOR HPI MUSCULOSKELETAL: NEGATIVE EXCEPT FOR HPI INTEGUMENTARY: NEGATIVE EXCEPT FOR HPI NEUROLOGICAL/PSYCH: NEGATIVE EXCEPT FOR HPI HEMATOLOGIC/LYMPHATIC: NEGATIVE EXCEPT FOR HPI ALL SYSTEMS NEGATIVE, EXCEPT NOTED ABOVE. 13 POINT REVIEW OF SYSTEMS ASSESSED AND ALL NEGATIVE EXCEPT FOR ABOVE. Initial Vital Sign VS Vital Signs Date Time Temp Pulse Resp B/P (MAP) Pulse Ox O2 Delivery O2 Flow Rate FiO2 10/11/24 10:59 98.1 93 20 161/90 99 Room Air 0 10/11/24 11:20 21 Physical Exam Dictation VITAL SIGNS REVIEWED GENERAL APPEARANCE: ALERT, ORIENTED X 3, MILD ACUTE DISTRESS, WELL DEVELOPED, NOURISHED. HEAD AND FACE: NON-TRAUMATIC. EYES: PERRL, PINK CONJUNCTIVAS, EYELID NO TRAUMA, ANTERIOR CHAMBER WITH ARCUS SENILIS. EARS: PINNAS INTACT AND NO SIGNS OF TRAUMA OR ERYTHEMA EAR CANALS CLEAR AND NO DISCHARGE TM NO ERYTHEMA NOSE: NO DISCHARGE, NO BLEEDING. OROPHARYNX: MOUTH NORMAL, TONGUE PINK, PHARYNX CLEAR,NO ERYTHEMA, TONSILS NO EXUDATES, NO ABSCESSES NOTED, MUCOUS MEMBRANE MOIST NECK: SUPPLE, NON-TENDER, NO THYROMEGALY, NO MASSES, NO JVD, NO BRUITS BREAST:DEFERRED CHEST:NO TENDERNESS, NO CREPITUS, NO PARADOXICAL MOVEMENT, NO RETRACTIONS LUNGS:CLEAR, WELL-VENTILATED, SYMMETRIC, NO RALES, NO WHEEZING, NO RHONCHI, NO STRIDOR, GOOD BREATH SOUNDS BILATERALLY HEART: REGULAR RATE, REGULAR RHYTHM, NO MURMUR, NO GALLOPS VASCULAR: NO PERIPHERAL EDEMA, ABDOMEN: SOFT, POSITIVE BOWEL SOUNDS, NONDISTENDED, NO GUARDING, NONTENDER, NO REBOUND, NO MASSES NO HEPATOMEGALY, NO SPLENOMEGALY, NO HANEY'S SIGN, NO HERNIAS. RECTAL: DEFERRED GENITAL: DEFERRED NEUROLOGICAL: NORMAL SPEECH, MOTOR FUNCTION INTACT, SENSORY FUNCTION INTACT MUSCULOSKELETAL: NECK NONTENDER, FULL RANGE OF MOTION, BACK NONTENDER, FULL RANGE OF MOTION, EXTREMITIES: NONTENDER, FULL RANGE OF MOTION SKIN: COLOR PINK, DRY, NO TURGOR, NO RASH, NO LACERATIONS, NO ABRASIONS, NO CONTUSIONS. LYMPHATIC: DEFERRED Results (Laboratory/Radiology) Laboratory/Radiology Laboratory Tests Test 10/11/24 11:20 10/11/24 11:23 10/11/24 12:03 10/11/24 13:00 White Blood Count 16.4 K/uL (4.8-10.8) H Red Blood Count 4.85 MIL/uL (4.00-5.50) Hemoglobin 13.5 g/dL (12.0-16.0) Hematocrit 40.6 % (36-48) Mean Corpuscular Volume 83.7 fL (79-99) Mean Corpuscular Hemoglobin 27.8 pg (27.0-33.0) Mean Corpuscular Hemoglobin Concent 33.3 g/dL (32.0-36.0) Red Cell Distribution Width 12.8 % (11.0-15.5) Platelet Count 370 K/uL (130-400) Mean Platelet Volume 10.1 fL (7.5-10.5) Immature Granulocyte % (Auto) 0.7 % (0-1) Neutrophils (%) (Auto) 78.7 % (40.0-77.0) H Lymphocytes (%) (Auto) 12.4 % (21.0-51.0) L Monocytes (%) (Auto) 6.5 % (3.0-13.0) Eosinophils (%) (Auto) 1.2 % (0.0-8.0) Basophils (%) (Auto) 0.5 % (0.0-5.0) Neutrophils # (Auto) 13.0 K/uL (1.8-7.7) H Lymphocytes # (Auto) 2.0 K/uL (1.0-4.8) Monocytes # (Auto) 1.1 K/uL (0.1-1.0) H Eosinophils # (Auto) 0.19 K/uL (0.00-0.70) Basophils # (Auto) 0.08 K/uL (0.00-0.20) Absolute Immature Granulocyte (auto 0.11 K/uL (0-1) Nucleated Red Blood Cells 0.0 % (0.0-0.19) Sodium Level 137 mmol/L (136-145) Potassium Level 3.7 mmol/L (3.5-5.1) Chloride Level 98 mmol/L (101-111) L Carbon Dioxide Level 28 mmol/L (21-32) Blood Urea Nitrogen 20 mg/dL (7-18) H Creatinine 1.1 mg/dL (0.5-1.0) H Glomerular Filtration Rate Calc 59 mL/min (>90) Random Glucose 181 mg/dL (70-105) H Whole Blood Ketones Quantitative 0.2 mmol/L (0.0-0.6) Total Calcium 9.2 mg/dL (8.5-10.1) Lipase 58 U/L (16-77) Whole Blood Glucose 184 MG/DL (70-110) H Lactic Acid Level 2.0 mmol/L (0.8-2.5) Urine Color YELLOW (YELLOW) Urine Appearance HAZY (CLEAR) Urine pH 5.5 (5.0-8.0) Urine Specific [place] 1.017 (1.001-1.031) Urine Protein 20 mg/dL (NEGATIVE) H Urine Glucose (UA) NEGATIVE mg/dL (NEGATIVE) Urine Ketones NEGATIVE mg/dL (NEGATIVE) Urine Occult Blood +- (TRACE) (NEGATIVE) H Urine Nitrate NEGATIVE (NEGATIVE) Urine Bilirubin NEGATIVE mg/dL (NEGATIVE) Urine Urobilinogen 0.2 mg/dL (0.2-1.0) Urine Leukocyte Esterase 500 [place]/uL (NEGATIVE) H Urine RBC 11-25 /HPF (0-1) H Urine WBC TNTC /HPF (0-1) H Urine Squamous Epithelial Cells MOD /HPF (0-2) Urine Bacteria FEW /HPF (None Seen) Urine Hyaline Casts 6-10 /LPF (0-1 /LPF) H Labs Reviewed?: Yes ED Course ED Course Orders Procedure Category Date Status Time Ketone Blood LAB 10/11/24 Complete Quantitative 10:58 Cbc With Differential LAB 10/11/24 Complete 10:58 Urinalysis Profile LAB 10/11/24 Complete 10:58 0.9%Nacl 1000ml (Ns PHA 10/11/24 Complete 1000ml) 11:00 Ondansetron 4mg Inj PHA 10/11/24 Complete (Zofran 4mg Inj) 11:00 Lipase LAB 10/11/24 Complete 10:58 Basic Metabolic Panel LAB 10/11/24 Complete 10:58 Blood Cult JESUS 10/11/24 In Process 12:04 Lactic Acid LAB 10/11/24 Complete 12:04 Culture Urine JESUS 10/11/24 In Process 13:16 Levofloxacin 500 PHA 10/11/24 Complete Mg/D5w 100 Ml 13:19 Current Medications Medications (Trade) Dose Ordered Sig/Gabi Route PRN Reason Start Time Stop Time Status Last Admin Dose Admin Levofloxacin/ Dextrose 100 ml @ 100 mls/hr ONCE STAT IV 10/11/24 13:19 10/11/24 14:18 DC 10/11/24 14:18 Ondansetron HCl (zoFRAN 4MG INJ) 4 mg ONCE ONCE IVP 10/11/24 11:00 10/11/24 11:04 DC 10/11/24 11:14 Sodium Chloride 1,000 ml @ 0 mls/hr ONCE ONCE IV 10/11/24 11:00 10/11/24 11:04 DC 10/11/24 11:14 Vital Signs Date Time Temp Pulse Resp B/P (MAP) Pulse Ox O2 Delivery O2 Flow Rate FiO2 10/11/24 15:22 98.1 80 16 130/60 99 Room Air* 0 10/11/24 13:17 98.1 85 16 99 Room Air* 0 10/11/24 12:06 98.1 90 16 129/55 99 Room Air* 0 10/11/24 11:20 90 16 147/76 98 Room Air* 0 10/11/24 10:59 98.1 93 20 161/90 99 Room Air 0 1420/PATIENT WISHES TO BE DISCHARGED HOME FEELS BETTER AFTER LEVAQUIN AND FLUIDS. SHE IS AWARE THAT SHE HAS A UNCONTROLLED DIABETES/DEHYDRATION AND UTI. STATES SHE HAS AN APPOINTMENT WITH 1-2 DAYS. Medical Decision Making MDM MDM: DIFFERENTIAL DIAGNOSIS: DKA/DIABETES/HYPERTENSION/ RATIONALE: TESTS CONSIDERED AND ORDERED SECONDARY TO SHARED DECISION MAKING INCLUDE: PREVIOUS OUTSIDE RECORDS REVIEWED: OLD ER VISITS. RISK OF COMPLICATION AND/OR MORBIDITY OR MORTALITY OF PATIENT MANAGEMENT: NONE MEDICATIONS-PER MEDICATION RECONCILIATION NEED FOR HOSPITALIZATION: PATIENT DOES NOT MEET CRITERIA FOR HOSPITALIZATION. NEED FOR EMERGENCY MAJOR/MINOR SURGERY: NO THERE ARE NO SOCIAL CONCERNS WITH THIS PATIENT. PRESCRIPTION DRUG MANAGEMENT PRESCRIPTIONS WILL INCLUDE SYMPTOMATIC CARE PATIENT'S PRIOR EXTERNAL MEDICAL RECORDS FROM OTHER ER VISITS WERE REVIEWED BY ME INDICATED. PRIOR TESTING AND RESULTS FROM PREVIOUS VISITS WERE REVIEWED. PRIOR TESTS WERE TAKEN INTO ACCOUNT WITH MEDICAL DECISION MAKING AND RESOURCE UTILIZATION, INDEPENDENT HISTORIAN/HISTORIANS WERE USED TO OBTAIN COMPLETE MEDICAL HISTORY. I INDEPENDENTLY INTERPRETED THE TEST THAT WERE PERFORMED, RESULTS WERE REVIEWED BY ME AND CONSIDERED FINDINGS ON RADIOLOGY IF ORDERED. MEDICAL MANAGEMENT AND EXAMINATION INTERPRETATION DISCUSSIONS WERE HAD BY ME WITH OTHER QUALIFIED HEALTHCARE PROFESSIONALS INDICATED FOR THE PATIENT'S CARE. DX & DISP Disposition: Discharge Departure Impression: Primary Impression: Acute cystitis with hematuria Additional Impressions: Diabetes mellitus with hyperglycemia, Dehydration, Hypochloremia Condition: Stable Scripts Levofloxacin (Levofloxacin) 500 Mg Tablet 1 TAB PO DAILY for 10 Days, #10 TAB 0 Refills Prov: RENETTA DIANA OPTICAL MANUFACTURING TECHNICIAN 10/11/24 Additional Instructions: FOLLOW-UP WITH PRIMARY CARE PROVIDER IN 1 TO 2 DAYS. TAKE MEDICATIONS DIRECTED HERE IN THE EMERGENCY ROOM. OKAY TO CONTINUE HOME MEDICATIONS UNLESS OTHERWISE DISCUSSED DURING YOUR VISIT IN THE EMERGENCY ROOM TODAY. RETURN TO YOUR NEAREST EMERGENCY ROOM IF SYMPTOMS WORSEN OR IF THERE IS NO IMPROVEMENT. CALL 911 IF YOU NEED IMMEDIATE ASSISTANCE. TAKE TYLENOL OR MOTRIN [id number] NEEDED AND IF NO CONTRAINDICATIONS ARE PRESENT. INCREASE ORAL HYDRATION. A WOUND CULTURE OR URINE CULTURE WAS ORDERED HERE IN THE EMERGENCY ROOM DEPARTMENT PLEASE FOLLOW-UP WITH PRIMARY CARE PROVIDER AND ADVISE THEM TO GET REPEAT PORTS FROM OUR FACILITY. IF YOU HAD ANY ALMITA WRAP/SPLINTS THAT WERE APPLIED HERE, PLEASE DO NOT REMOVE THEM UNTIL YOU SEE YOUR PRIMARY CARE OR SPECIALTY. TAKE ANTIBIOTICS DIRECTED UNTIL GONE. , CONTINUE YOUR DIABETIC MEDICATIONS FROM YOUR PRIMARY CARE DOCTOR. INCREASE YOUR WATER INTAKE. SEE YOUR PRIMARY CARE DOCTOR FOR FOLLOW UP Referrals: RACHEL CARDOSO MD (PCP) Time of Disposition: 14:31 I have reviewed the case, and I agree with, Diagnosis and Plan RENETTA DIANA NP Oct 11, 2024 11:01 MEHDI CANO DO Oct 12, 2024 07:51
[2024-10-11] MEDS: 0.9%NACL 1000ML 1,000 ML IV ONE (11:14)
[2024-10-11] MEDS: ondanSETRON 4MG INJ IVP ONE (11:14)
[2024-10-11 12:01] LABS: BASOPHILS # (AUTO) 0.08 K/uL (0.00-0.20); BASOPHILS % (AUTO) 0.5 % (0.0-5.0); EOSINOPHILS # (AUTO) 0.19 K/uL (0.00-0.70); EOSINOPHILS % (AUTO) 1.2 % (0.0-8.0); HEMATOCRIT 40.6 % (36-48); IMMATURE GRANULOCYTE ABSOLUTE 0.11 K/uL (0-1); LYMPHOCYTES % (AUTO) 12.4 % (21.0-51.0); MEAN CORPUSCULAR HEMOGLOBIN 27.8 pg (27.0-33.0); MEAN CORPUSCULAR HGB CONC 33.3 g/dL (32.0-36.0); MEAN CORPUSCULAR VOLUME 83.7 fL (79-99); MONOCYTES # (AUTO) 1.1 K/uL (0.1-1.0); MONOCYTES % (AUTO) 6.5 % (3.0-13.0); NEUTROPHILS % (AUTO) 78.7 % (40.0-77.0); PLATELET COUNT (AUTO) 370 K/uL (130-400); RED BLOOD CELL COUNT(AUTO) 4.85 MIL/uL (4.00-5.50); RED CELL DISTRIBUTION WIDTH 12.8 % (11.0-15.5); WHITE BLOOD COUNT (AUTO) 16.4 K/uL (4.8-10.8)
[2024-10-11 12:15] LABS: CREATININE 1.1 mg/dL (0.5-1.0); POTASSIUM 3.7 mmol/L (3.5-5.1)
[2024-10-11 13:12] LABS: BILIRUBIN,URINE NEGATIVE (NEGATIVE); COLOR,URINE YELLOW (YELLOW); GLUCOSE, URINE (UA) NEGATIVE (NEGATIVE); KETONES,URINE NEGATIVE (NEGATIVE); LEUKOCYTE ESTERASE ,URINE 500 Leu/uL (NEGATIVE); NITRATE,URINE NEGATIVE (NEGATIVE); PH,URINE 5.5 (5.0-8.0); PROTEIN,URINE 20 mg/dL (NEGATIVE); UROBILINOGEN,URINE 0.2 mg/dL (0.2-1.0)
[2024-10-11 13:15] LABS: ADD UA MICROSCOPIC YES; APPEARANCE,URINE HAZY (CLEAR)
[2024-10-11 13:25] LABS: BACTERIA,URINE FEW /HPF (None Seen); MUCUS,URINE MOD LPF (None Seen); SQUAMOUS EPITHELIAL CELL,UR MOD /HPF (0-2); WBC,URINE TNTC /HPF (0-1)
[2024-10-11] MEDS: levoFLOXacin 500 MG/D5W 100 ML 100 ML IV STA (14:18)
[2024-10-11] MEDS ORDERED: LEVO-70 PO (14:33)
[2024-10-11 15:22] VITALS: BP 130/60; PULSE 80; RESP 16; TEMP 98; O2SAT 99
== END 2024-10-11 15:29 | disposition home or self-care (01) ==
LOC: EDH 10:50
DX: N30.01 Acute cystitis with hematuria (principal); E11.65 Type 2 diabetes mellitus with hyperglycemia; E86.0 Dehydration; E87.8 Other disorders of electrolyte and fluid balance, not elsewhere classified; Z79.899 Other long term (current) drug therapy; Z88.1 Allergy status to other antibiotic agents; Z88.5 Allergy status to narcotic agent; Z90.49 Acquired absence of other specified parts of digestive tract
CPT/HCPCS: 99285; 96365; 96361; 96375; 80048; 83690; 85025; 87040 ×2; 87086; 82948; 83605; 82010; 81001; 36415; J1956; J7030; J2405

== ENCOUNTER 2024-12-08 09:44 | Emergency (ER) | payer SELFPAY ==
[~2024-12-08] VITALS: Ht 157.5 cm; Wt 73.0 kg
[~2024-12-08 09:44] MED LIST changes: +LEVO-70 PO
[2024-12-08 10:28] LABS: RAPID GROUP A STREP negative (NEGATIVE)
[2024-12-08 10:38] LABS: COVID19 (SARS ANTIGEN RAPID) PRESUMPTIVE NEGATIVE (NEGATIVE); INFLUENZA TYPE A Negative For Type A (NEGATIVE); INFLUENZA TYPE B Negative For Type B (NEGATIVE)
[2024-12-08] MEDS: 0.9%NACL 1000ML 1,000 ML IV ONE (10:48)
[2024-12-08] MEDS: ondanSETRON 4MG INJ IVP ONE (10:48)
[2024-12-08 10:56] LABS: BASOPHILS # (AUTO) 0.06 K/uL (0.00-0.20); BASOPHILS % (AUTO) 0.5 % (0.0-5.0); EOSINOPHILS # (AUTO) 0.53 K/uL (0.00-0.70); EOSINOPHILS % (AUTO) 4.1 % (0.0-8.0); HEMATOCRIT 36.9 % (36-48); IMMATURE GRANULOCYTE ABSOLUTE 0.09 K/uL (0-1); LYMPHOCYTES # (AUTO) 2.6 K/uL (1.0-4.8); LYMPHOCYTES % (AUTO) 19.8 % (21.0-51.0); MEAN CORPUSCULAR HEMOGLOBIN 28.6 pg (27.0-33.0); MEAN CORPUSCULAR HGB CONC 34.1 g/dL (32.0-36.0); MEAN CORPUSCULAR VOLUME 83.7 fL (79-99); MONOCYTES # (AUTO) 1.2 K/uL (0.1-1.0); MONOCYTES % (AUTO) 9.4 % (3.0-13.0); NEUTROPHILS # (AUTO) 8.5 K/uL (1.8-7.7); NEUTROPHILS % (AUTO) 65.5 % (40.0-77.0); PLATELET COUNT (AUTO) 291 K/uL (130-400); RED BLOOD CELL COUNT(AUTO) 4.41 MIL/uL (4.00-5.50); RED CELL DISTRIBUTION WIDTH 13.6 % (11.0-15.5)
[2024-12-08 11:04] LABS: CREATININE 0.7 mg/dL (0.5-1.0); POTASSIUM 3.7 mmol/L (3.5-5.1)
[2024-12-08 11:14] LABS: ALBUMIN 4.2 g/dL (3.5-5.0); BILIRUBIN,DIRECT 0.1 mg/dL (0.0-0.3); BILIRUBIN,TOTAL 0.2 mg/dL (0.2-1.0); TOTAL PROTEIN, SERUM 7.8 g/dL (6.0-8.3)
--- NOTE | 2024-12-08 11:31 | HMCIMG ---
Exam Type: CHEST 1VW Clinical Information: cough Comparison: None Findings: The lungs are clear of infiltrates. The heart is normal in size. The bony and soft tissue structures of the chest are unremarkable. Impression: Clear lungs.
[2024-12-08] MEDS: guaiFENesin-DM 200/20MG 10ML PO ONE (12:24)
[2024-12-08] MEDS ORDERED: DOXY20TA20 PO (14:10)
--- NOTE | 2024-12-08 14:10 | ERN ---
ED Note History of Present Illness Stated Complaint: COUGH/CONGESTION/EAR PAIN Chief Complaint: Cough Time Seen by MD: 09:48 Dictation: 54-year-old female presenting to the emergency department with cough cold congestion and sinus pressure over the past two weeks worse over the past few days. Patient also reports chills no fever no abdominal pain or shortness of breath. Allergies: Coded Allergies: ceftriaxone (Verified Allergy, Severe, HIVES, 07/11/15) codeine (Verified Allergy, Unknown, 11/18/13) erythromycin base (Verified Allergy, Unknown, 11/18/13) Home Meds Active Scripts Levofloxacin (Levofloxacin) 500 Mg Tablet, 1 TAB PO DAILY for 10 Days, #10 TAB 0 Refills Prov:RENETTA DIANA NP 10/11/24 Cyclobenzaprine HCl (Cyclobenzaprine HCl) 10 Mg Tablet, 1 TAB PO TID for muscle spasms for 10 Days, #30 TAB 0 Refills Prov:RENETTA DIANA NP 06/22/24 Ibuprofen (Ibuprofen 800 mg Tab) 800 Mg Tab, 800 MG PO Q8H PRN for fever or pain, #30 TAB 0 Refills Prov:RENETTA DIANA NP 06/22/24 Ketorolac Tromethamine (Ketorolac Tromethamine) 10 Mg Tablet, 1 TAB PO Q6HPRN PRN for pain for 5 Days, #20 TAB 0 Refills Prov:RENETTA DIANA NP 05/23/24 Ondansetron (Ondansetron Odt) 4 Mg Tab.rapdis, 4 MG PO Q6HPRN PRN for nausea, #16 TAB 0 Refills Prov:RENETTA DIANA NP 02/20/24 Reported Medications Divalproex Sodium (Divalproex Sodium ER) 500 Mg Tab.er.24h, 500 MG PO HS, TAB 03/13/24 Olanzapine (Olanzapine) 5 Mg Tablet, 5 MG PO HS, TAB 03/13/24 Gabapentin (Gabapentin) 600 Mg Tablet, 600 MG PO TID, TAB 03/13/24 Naproxen (Naproxen) 500 Mg Tablet, 500 MG PO AD, TAB 03/13/24 Benztropine Mesylate (Benztropine Mesylate) 1 Mg Tablet, 1 MG PO BID, TAB 03/13/24 Escitalopram Oxalate (Escitalopram Oxalate) 20 Mg Tablet, 30 MG PO AM, TAB 03/13/24 Buspirone HCl (Buspirone HCl) 30 Mg Tablet, 30 MG PO BID, TAB 03/13/24 Divalproex Sodium (Depakote ER) 500 Mg Tab.er.24h, 500 MG PO HS, TAB 03/13/24 Quetiapine Fumarate (Quetiapine Fumarate) 150 Mg Tablet, 150 MG PO HS, TAB 03/13/24 Past Medical History Past Medical History: Anxiety, Asthma, Depression, Diabetes-Type II Additional Past Medical Hx: CHRONIC BACK/NECK PAIN Surgical History: Tonsillectomy, Cholecystectomy, None Surgical History Other: CATARACTS, EAR TUBES , LASIK EYE SX Social History: Negative, Lives with family, Other History: Not Applicable Review of System Dictation Constitutional: Negative for fever, Eyes: Negative for injury, pain,redness, and discharge ENT: Per HPI Cardiovascular: Negative for chest pain, palpitations, and edema Respiratory: Per HPI Abdomen/GI: Negative for abdominal pain, nausea, vomiting, diarrhea, and constipation Back: Negative for injury and pain : Negative for injury, bleeding and discharge MS/Extremity: Negative for injury and deformity Skin: Negative for rash, and discoloration Neuro: Negative for headache, weakness, numbness, tingling, and seizure Psych: Negative for suicide ideation, homicidal ideation, and hallucinations Initial Vital Sign VS Vital Signs Date Time Temp Pulse Resp B/P (MAP) Pulse Ox O2 Delivery O2 Flow Rate FiO2 12/08/24 09:48 98.4 91 18 132/52 Room Air 0 12/08/24 10:09 98 21 Physical Exam Dictation General: awake, alert, NAD Head/Face: Normocephalic, atraumatic Eyes: PERRL, EOMI, vision at baseline ENT: oral cavity clear, TMs clear, no signs of infection Neck: Trachea midline, supple, no nuchal rigidity Cardiovascular: RRR, normal S1/S2, No MRGs, no JVD Respiratory: CTAB, no respiratory distress, No rales or wheezes Abdomen: Soft, non-tender, non-distended, normal bowel sounds, no guarding or rebound. Skin: Warm, dry, normal turgor, no rash MS/Extremity: Pulses equal, no cyanosis, neurovascular intact, FROM Neuro: COAx4, GCS 15, strength 5/5, CN 2-12 intact, normal cerebellar exam, normal gait, Psych: Normal behavior, mood, and affect normal Results (Laboratory/Radiology) Laboratory/Radiology Laboratory Tests Test 12/08/24 10:00 12/08/24 10:42 Influenza Type A Antigen Negative For Type A Influenza Type B Antigen Negative For Type B SARS-CoV-2 Antigen (Rapid) PRESUMPTIVE NEGATIVE Group A Streptococcus Rapid negative (NEGATIVE) White Blood Count 13.0 K/uL (4.8-10.8) H Red Blood Count 4.41 MIL/uL (4.00-5.50) Hemoglobin 12.6 g/dL (12.0-16.0) Hematocrit 36.9 % (36-48) Mean Corpuscular Volume 83.7 fL (79-99) Mean Corpuscular Hemoglobin 28.6 pg (27.0-33.0) Mean Corpuscular Hemoglobin Concent 34.1 g/dL (32.0-36.0) Red Cell Distribution Width 13.6 % (11.0-15.5) Platelet Count 291 K/uL (130-400) Mean Platelet Volume 9.9 fL (7.5-10.5) Immature Granulocyte % (Auto) 0.7 % (0-1) Neutrophils (%) (Auto) 65.5 % (40.0-77.0) Lymphocytes (%) (Auto) 19.8 % (21.0-51.0) L Monocytes (%) (Auto) 9.4 % (3.0-13.0) Eosinophils (%) (Auto) 4.1 % (0.0-8.0) Basophils (%) (Auto) 0.5 % (0.0-5.0) Neutrophils # (Auto) 8.5 K/uL (1.8-7.7) H Lymphocytes # (Auto) 2.6 K/uL (1.0-4.8) Monocytes # (Auto) 1.2 K/uL (0.1-1.0) H Eosinophils # (Auto) 0.53 K/uL (0.00-0.70) Basophils # (Auto) 0.06 K/uL (0.00-0.20) Absolute Immature Granulocyte (auto 0.09 K/uL (0-1) Nucleated Red Blood Cells 0.0 % (0.0-0.19) Sodium Level 141 mmol/L (136-145) Potassium Level 3.7 mmol/L (3.5-5.1) Chloride Level 104 mmol/L (101-111) Carbon Dioxide Level 29 mmol/L (21-32) Blood Urea Nitrogen 10 mg/dL (7-18) Creatinine 0.7 mg/dL (0.5-1.0) Glomerular Filtration Rate Calc 102 mL/min (>90) Random Glucose 105 mg/dL (70-105) Total Calcium 8.9 mg/dL (8.5-10.1) Total Bilirubin 0.2 mg/dL (0.2-1.0) Direct Bilirubin 0.1 mg/dL (0.0-0.3) Aspartate Amino Transf (AST/SGOT) 17 U/L (10-37) Alanine Aminotransferase (ALT/SGPT) 28 U/L (12-78) Alkaline Phosphatase 96 U/L (50-136) Troponin I High Sensitivity 5 ng/L (4-50) BN-Wjv-L-Type Natriuretic Peptide 129 pg/mL (0-125) H Total Protein 7.8 g/dL (6.0-8.3) Albumin 4.2 g/dL (3.5-5.0) Labs Reviewed?: Yes EKG: (+) NSR, (+) rhythm, (+) ND, (+) QRS ED Course ED Course Orders Procedure Category Date Status Time Chest 1vw RAD 12/08/24 Resulted 09:48 Covid19 (Sars Antigen LAB 12/08/24 Complete Rapid) 09:56 Rapid (Group A Strep) LAB 12/08/24 Complete 09:56 Influenza Type A & B, LAB 12/08/24 Complete Rapid 09:56 12 Lead Ekg Tracing- EKG 12/08/24 Logged Technical 10:32 Basic Metabolic Panel LAB 12/08/24 Complete 10:32 Cbc With Differential LAB 12/08/24 Complete 10:32 Hepatic Function Panel LAB 12/08/24 Complete 10:32 Troponin I High LAB 12/08/24 Complete Sensitivity 10:32 0.9%Nacl 1000ml (Ns PHA 12/08/24 Complete 1000ml) 11:00 Ondansetron 4mg Inj PHA 12/08/24 Complete (Zofran 4mg Inj) 11:00 Probnp LAB 12/08/24 Complete 10:32 Guaifenesin-Dm PHA 12/08/24 Complete 200/20mg 10ml 12:30 Methylprednisolone PHA 12/08/24 In Process Succ 125mg (Solu-Medr 14:30 Current Medications Medications (Trade) Dose Ordered Sig/Gabi Route PRN Reason Start Time Stop Time Status Last Admin Dose Admin Guaifenesin/ Dextromethorphan (RobiTUSSin DM 200/20MG 10ML) 15 ml ONCE ONCE PO 12/08/24 12:30 12/08/24 12:31 DC 12/08/24 12:24 Ondansetron HCl (zoFRAN 4MG INJ) 4 mg ONCE ONCE IVP 12/08/24 11:00 12/08/24 11:01 DC 12/08/24 10:48 Sodium Chloride 1,000 ml @ 0 mls/hr ONCE ONCE IV 12/08/24 11:00 12/08/24 11:01 DC 12/08/24 10:48 Vital Signs Date Time Temp Pulse Resp B/P (MAP) Pulse Ox O2 Delivery O2 Flow Rate FiO2 12/08/24 12:28 98.4 78 19 147/58 99 Room Air* 0 21 12/08/24 10:09 98.4 85 20 140/66 98 Room Air* 0 21 12/08/24 09:48 98.4 91 18 132/52 Room Air 0 Medical Decision Making MDM MDM: Differential diagnosis: Rationale: Tests considered and ordered secondary to shared decision making include: Previous outside records reviewed: Old ER visits. Risk of complication and/or morbidity or mortality of patient management: None Medications-Per medication reconciliation Need for hospitalization: Patient does not meet criteria for hospitalization. Need for emergency major/minor surgery: No There are no social concerns with this patient. Prescription drug management Prescriptions will include symptomatic care Patient's prior external medical records from other ER visits were reviewed by me as indicated. Prior testing and results from previous visits were reviewed. Prior tests were taken into account with medical decision making and resource utilization, independent historian/historians were used to obtain complete medical history. I independently interpreted the test that were performed, results were reviewed by me and considered findings on radiology if ordered. Medical management and examination interpretation discussions were had by me with other qualified healthcare professionals as indicated for the patient's care. 54-year-old female with acute on chronic sinusitis, URI, stable exam negative wo rkup symptoms improved prescriptions given. DX & DISP Disposition: Discharge Departure Impression: Primary Impression: Sinusitis Condition: Stable Scripts Doxycycline Hyclate (Doxycycline Hyclate) 20 Mg Tablet 1 TAB PO BID for 7 Days, #14 TAB 0 Refills Prov: ANUJA BARKER MD 12/08/24 Referrals: RACHEL CARDOSO MD (PCP) ANUJA BARKER MD Dec 08, 2024 14:10
[2024-12-08 14:16] VITALS: BP 148/56; PULSE 83; RESP 19; TEMP 98.5; O2SAT 99
[2024-12-08] MEDS: Solu-medROL 125MG VIAL IVP ONE (14:17)
--- NOTE | 2024-12-08 15:01 | NUR ---
DC PATIENT WAS DC'D BY DR Rosalva Grande TODAY, I DC'D PATIENTS IV WITH CATH STILL INTACT AND APPLIED 2X2 GAZUE WITH COBAN I EXPLAINED TO PATIENT TO FOLLOW UP WITH PCP, PROVIDED INFO BASED ON DIAGNOSIS AND EXPLAINED NEW PRESCRIPTIONS AND HOW TO TAKE THEM, I ALSO ANSWERED ANY FURTHER QUESTIONS THE PATIENT HAD, PATIENT WAS TAKEN BY WHEELCHAIR OUT OF ED BY THEATER TEACHER, NO COMPLICATIONS
--- NOTE | 2024-12-08 15:01 | EKG ---
[facility] Test Date: 2024-12-08 Test Time: 10:51:46 Pat Name: ELLIE MURPHY Department: ED Room: Gender: F Cable Maker: [id number] : [id number] Requested By: ANUJA BARKER Order Number: [id number] Reading MD: Ángel Murphy Measurements Intervals [place] Rate: 78 P: 43 CA: 124 QRS: -30 QRSD: 83 T: 56 QT: 387 QTc: 442 Interpretive Statements Sinus rhythm Left axis deviation Compared to ECG 03/13/2024 09:10:15 Left-axis deviation now present Electronically Signed On 12-09-2024 17:18:25 CDT by Ángel Murphy Please click the below link to view image of tracing.
== END 2024-12-08 15:00 | disposition home or self-care (01) ==
LOC: EDH 09:44
DX: J32.9 Chronic sinusitis, unspecified (principal); F41.9 Anxiety disorder, unspecified; E11.9 Type 2 diabetes mellitus without complications; F32.A Depression, unspecified; J45.909 Unspecified asthma, uncomplicated; Z79.899 Other long term (current) drug therapy; Z88.1 Allergy status to other antibiotic agents; Z88.5 Allergy status to narcotic agent; Z90.49 Acquired absence of other specified parts of digestive tract; Z90.89 Acquired absence of other organs; Z20.822 Contact with and (suspected) exposure to COVID-19
CPT/HCPCS: 99285; 96374; 96361; 71045; 96375; 87426; 80076; 84484; 80048; 83880; 85025; 87880; 87804 ×2; 36415; 93005; J2919; J2405